=== PATIENT | female | born 1960 | race Caucasian/White ===

== ENCOUNTER 2016-10-02 01:38 | Emergency (ER) | payer BC ==
[2016-10-02] MEDS ORDERED: LORazepam INJ* 2 MG/ML 1 ML VIAL IM ONE (01:42)
[2016-10-02] MEDS ORDERED: Ketorolac INJ* 60 MG/2 ML VIAL IM ONE (01:42)
[2016-10-02] MEDS ORDERED: HYDROmorphone INJ* 1 MG/ML CARPUJECT SYRINGE IM ONE (02:22)
[2016-10-02] MEDS ORDERED: HYDROmorphone INJ* 1 MG/ML CARPUJECT SYRINGE IV SLOW PU ONE (03:53)
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
[2016-10-02 04:38] VITALS: BP 127/107
--- NOTE | 2016-10-02 08:10 | RAD ---
HISTORY: Fall, back pain COMPARISONS: September 20, 2007 VIEWS: 5 , Frontal, lateral, coned-down lateral sacral, and bilateral oblique views of the lumbar spine. FINDINGS: ALIGNMENT: There is straightening of the normal lumbar lordosis. There is mild levoscoliotic curvature of the spine VERTEBRAL BODIES: There is multilevel anterolateral marginal osteophyte formation. JOINTS: There is diffuse facet osteophytic change most mass at L3-L4, L4-L5, and L5-S1. INTERVERTEBRAL DISCS: There is diffuse loss of intervertebral disc height. SOFT TISSUE: Unremarkable. OTHER: There is mild osteoarthritis of the SI joints IMPRESSION: 1. STRAIGHTENING OF THE LUMBAR LORDOSIS. 2. MILD SCOLIOSIS. 3. DEGENERATIVE DISC DISEASE AND OSTEOARTHRITIS
== END 2016-10-02 04:37 | disposition home or self-care (01) ==
LOC: ED 01:38
DX: M51.37 Other intervertebral disc degeneration, lumbosacral region (principal); M40.56 Lordosis, unspecified, lumbar region; M54.5 Low back pain; M19.91 Primary osteoarthritis, unspecified site
CPT/HCPCS: 72110; 96374; 96375; 99283; J1170; J1885; J2060

== ENCOUNTER 2017-02-25 20:14 | Emergency (ER) | payer BC ==
[2017-02-25 20:29] VITALS: BP 142/86
[2017-02-25] MEDS ORDERED: Mupirocin 2% OINT* TUBE TOPICAL ONE (21:04)
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
== END 2017-02-25 21:15 | disposition home or self-care (01) ==
LOC: UCEAST 20:14
DX: L01.00 Impetigo, unspecified (principal); F17.210 Nicotine dependence, cigarettes, uncomplicated
CPT/HCPCS: 99212; G0463

== ENCOUNTER 2017-05-07 21:42 | Emergency (ER) | payer BC ==
[2017-05-07 21:50] VITALS: BP 161/69
== END 2017-05-07 22:45 | disposition left against medical advice (07) ==
LOC: ED 21:42
DX: R07.9 Chest pain, unspecified (principal); Z53.20 Procedure and treatment not carried out because of patient's decision for unspecified reasons
CPT/HCPCS: 99282

== ENCOUNTER 2017-06-02 19:14 | Emergency (ER) | payer BC ==
[2017-06-02 19:22] VITALS: BP 157/79
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
== END 2017-06-02 19:55 | disposition short-term general hospital (02) ==
LOC: UCEAST 19:14
DX: R10.31 Right lower quadrant pain (principal); F17.210 Nicotine dependence, cigarettes, uncomplicated; E11.9 Type 2 diabetes mellitus without complications; K21.9 Gastro-esophageal reflux disease without esophagitis
CPT/HCPCS: 99213; G0463

== ENCOUNTER 2017-06-02 20:13 | Observation (INO) | payer BC ==
[2017-06-02] MEDS ORDERED: NS 0.9% 1000 ML* 1,000 ML IV ONE (20:15)
[2017-06-02] MEDS ORDERED: Ondansetron INJ* 2 MG/ML VIAL IV ONE (20:15)
[2017-06-02] MEDS ORDERED: HYDROmorphone INJ* 1 MG/ML CARPUJECT SYRINGE IV SLOW PU ONE ×2 (20:21→23:41)
[2017-06-02 21:02] LABS: Hematocrit 41 % (35-47); Hemoglobin 14.5 g/dl (12.0-16.0); Mean Corpuscular HGB Conc 35 g/dl (31-36); Mean Corpuscular Hemoglobin 32 pg (27-31); Mean Corpuscular Volume 92 fL (80-97); Mean Platelet Volume 8 um3 (7.4-10.4); Red Blood Count 4.47 10^6/ul (4.0-5.4); Red Cell Distribution Width 13 % (10.5-15); White Blood Count 13.1 10^3/ul (3.5-10.8)
[2017-06-02 21:21] LABS: Albumin 4.6 g/dL (3.2-5.2); BUN/Creatinine Ratio 16.7 (8-20); C Reactive Protein 1.37 mg/L (< 5.00); Calcium 10.1 mg/dL (8.6-10.3); EGFR African American 107.8 (>60); EGFR Non-African American 83.8 (>60); Potassium 4.2 mmol/L (3.5-5.0); Total Bilirubin 0.4 mg/dL (0.2-1.0); Total Protein 7.6 g/dL (6.4-8.9)
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
[2017-06-02 22:24] LABS: Urine Bilirubin Negative (Negative); Urine Glucose Negative (Negative); Urine Nitrite Negative (Negative)
[2017-06-02] MEDS ORDERED: Iodixanol* (CONTRAST) 320 MG/ML 100 ML SDV IV ONE (22:43)
[2017-06-02] MEDS ORDERED: Ertapenem* 1 GM in NS 0.9% 50 ML* 50 ML IVPB ONE (23:42)
[2017-06-02] MEDS ORDERED: NS 0.9% 50 ML* 50 ML ONE (23:49)
[2017-06-03] MEDS ORDERED: HYDROmorphone INJ* 2 MG/ML CARPUJECT SYRINGE IV PRN
--- NOTE | 2017-06-03 05:47 | ED ---
Danis Sood Thomas, scribed for Oswald Alicia on 06/02/17 at 2355 . Progress - Progress Note Progress Note: The patient is a sign out from Dr. Paul at shift change pending CT Abd/Pel. CT Abd/Pel. Interpreted by radiologist. Impression. Operative for acute appendicitis. The appendix is dilated up to 1.1cm. There are appendicoliths and intraluminal fluid within the appendix. Mild periappendiceal inflammation. No abscess. No bowel obstruction. No free air or free fluid. No other acute intra- abdominal abnormalities. The liver may be fatty infiltrated. ED physician has reviewed this report and agrees. ED physician has reviewed this report and agrees. The patient is admitted by Dr. De León. Course/Dx - Diagnoses Provider Diagnoses: Acute appendicitis - Provider Notifications Discussed Care Of Patient With: French De León Time Discussed With Above Provider: 23:55 Instructed by Provider To: Other - I consulted with Dr. De León, surgery, who will admit the patient to his services. The documentation as recorded by the Danis feliciano Thomas accurately reflects the service I personally performed and the decisions made by Maral driscoll Emmanuel.
[2017-06-03] MEDS ORDERED: ceFOXitin 2 GM IVPREMIX* 2 GM/50 ML BAG IVPB ONE (07:37)
[2017-06-03] MEDS ORDERED: Acetaminophen IV 1GM/100ML * 1,000 MG/100 ML VIAL IVPB ONE ×2 (07:51→07:55)
--- NOTE | 2017-06-03 07:53 | RAD ---
INDICATION: Right lower quadrant abdominal pain. COMPARISON: Comparison is made with a prior CT of the abdomen and pelvis from November 16, 2013. TECHNIQUE: A CT scan of the abdomen and pelvis was performed with intravenous and oral contrast following intravenous injection of 101 ml of Visipaque 320 nonionic contrast. Contiguous axial sections were obtained from the lung bases through the symphysis pubis. Images were reconstructed in the coronal and sagittal planes. FINDINGS: There is mild dependent bilateral lower lobe subsegmental atelectasis. No pleural effusion is present. The liver and spleen are normal in size. The liver is decreased in attenuation consistent with fatty infiltration. No calcified gallstones are seen. The pancreas appears to be within normal limits. The kidneys and adrenal glands are normal in size. No hydronephrosis is seen. No significant focal renal abnormality is seen. The aorta is normal in caliber with mild calcific plaque present. No significant enlarged retroperitoneal lymph nodes are seen. The stomach, small and large bowel appear nondistended. There are appendicoliths present. The appendix is dilated and fluid-filled measuring up to 1 cm in diameter. There is interstitial stranding in the adjacent mesenteric fat. These findings are all consistent with acute appendicitis. No abscess is seen. There is mild descending and sigmoid diverticulosis without evidence for diverticulitis. There is a small periumbilical hernia containing fat The uterus is anteverted and normal in size. No free intraperitoneal air or fluid is seen. No significant focal osseous abnormality is seen. IMPRESSION: 1. FINDINGS CONSISTENT WITH ACUTE APPENDICITIS. 2. HEPATIC STEATOSIS.
[2017-06-03] MEDS ORDERED: Ketorolac INJ* 30 MG/ML 1 ML VIAL ONE (08:00)
--- NOTE | 2017-06-03 08:50 | HP ---
CC: Dr. Leobardo Bernardo* HISTORY AND PHYSICAL: DATE OF ADMISSION: 06/03/17 CHIEF COMPLAINT: Abdominal pain. HISTORY OF PRESENT ILLNESS: The patient started with abdominal pain yesterday, progressed to severe right lower quadrant pain last night and she came to the emergency room. She has not had an antecedent illness, does not usually have any bowel or digestive problems. She has not had nausea, vomiting, diarrhea, blood in the stool or urine. PAST SURGICAL HISTORY: section x2, diagnostic laparoscopy, tubal ligation, right shoulder surgery x2, left shoulder surgery x1. MEDICATIONS: Include: 1. Omeprazole 20 mg a day. 2. Meloxicam 15 mg a day. 3. Ropinirole 6 mg p.o. q. p.m. 4. Gabapentin 100 mg p.o. t.i.d. ALLERGIES: She quotes an allergy to CODEINE having had some hallucinations in the past. FAMILY HISTORY: Reveals no bleeding tendencies or anesthesia reactions. SOCIAL HISTORY: She is a smoker. She works 2 jobs. She has a significant other. REVIEW OF SYSTEMS: Negative for any cardiac disease, chest pain, angina pain, or heart pain. Pulmonary: There is no COPD but she has had recurrent bronchitis at times in the past, nothing now. She has no hepatobiliary history. She quotes prediabetes, but has not required any medication for it. There is no thyroid disease or other endocrine disease. She has not had any gastrointestinal disease, prior attack of diverticulitis. No colitis, irritable bowel, Crohn's, or anything of the sort. No disease. She has normal urination. No kidney stones. She is postmenopausal. She has had a previous tubal ligation. Neuromuscular, she has had restless leg syndrome and some neuropathic pain in her feet. She has had multiple orthopedic surgeries. PHYSICAL EXAMINATION GENERAL: She is a well-developed, well-nourished, overweight female, consistent with stated age. VITAL SIGNS: Temperature 98.1; pulse 81, regular; respirations 18, unlabored; blood pressure 114/62 with an O2 saturation of 95%. NECK: Supple without any adenopathy. LUNGS: Clear bilaterally with easy respirations. HEART: Regular without any abnormal sounds. BREAST: Deferred. She is up-to-date on mammograms and Pap smears. ABDOMEN: Obese and soft and exquisitely tender in the right lower quadrant with Rovsing's sign and guarding and rebound tenderness. There are no palpable masses or obvious hernias. EXTREMITIES: Well perfused and without edema. SKIN: Warm and well perfused. She is not diaphoretic. She is not jaundiced. LABORATORY DATA: Show white blood count elevated at 13,000, platelets normal, slight left shift. Electrolytes are normal and remainder of the chemistries are essentially normally. Urinalysis is unremarkable. CT scan which I personally reviewed is consistent with early acute appendicitis. IMPRESSION: A 56-year-old female with evidence of early acute appendicitis. I discussed this with her and I recommended laparoscopic appendectomy. She understands the procedure, the rationale, the risks, and the alternatives and agrees to proceed with that and we will do so as the operative schedule permits. [id number]/[facility]PS #: [id number] MTDD
--- NOTE | 2017-06-03 09:01 | PN ---
Progress Note - Progress Note Date of Service: 06/03/17 Note: Surgery Asked by Dr. De León to take over care of patient who has appendicitis. I have met with and examined Ms. Guerrero. I agree that she has appendicitis and should have laparoscopic appendectomy. I have explained to her the nature of surgery, its risks, benefits, and alternatives. She understands and agrees to proceed. Elvis
[2017-06-03] MEDS ORDERED: Famotidine IV* 10 MG/ML 2 ML (20 mg) IV ONE (09:56)
[2017-06-03] MEDS ORDERED: Dexamethasone IV* 4 MG/ML 1 ML (4 MG) IV SLOW PU ONE (09:56)
[2017-06-03] MEDS ORDERED: Buffered Lidocaine 0.9% SYRIN* 5 ML/SYR SYRINGE INTRADERM ONE (09:56)
[2017-06-03] MEDS ORDERED: Bupivacaine 0.25% SDV* 30 ML ONE (10:13)
[2017-06-03] MEDS ORDERED: Levalbuterol 1.25MG/0.5ML NEB ONE (10:25)
[2017-06-03] MEDS ORDERED: Ondansetron INJ* 2 MG/ML VIAL IV PRN ×2 (11:07)
[2017-06-03] MEDS ORDERED: HYDROcodone/ACETAMIN 5-325 MG* 1 TAB PO PRN (11:07)
[2017-06-03] MEDS ORDERED: Ketorolac INJ* 30 MG/ML 1 ML VIAL IV PRN (11:07)
[2017-06-03] MEDS ORDERED: Levalbuterol 1.25MG/0.5ML NEB INH PRN (11:07)
[2017-06-03] MEDS ORDERED: Acetaminophen TAB* 325 MG PO PRN (11:07)
--- NOTE | 2017-06-03 12:10 | PN ---
Progress Note - Progress Note Date of Service: 06/03/17 Note: Brief Operative Note: Pre-op: Acute appendicitis Post-op: Same Procedure: Laparoscopic appendectomy Surgeon: Dr. Aj Pastry Chef: QUE Ly Anaesthesia: Dr. Flash WHEAT Fluids: Crystalloid EBL; Minimal Catheter: None Drains: None Specimen: Vermiform appendix Findings: See dictated op note
[2017-06-03] MEDS: Gabapentin CAP(*) 100 MG PO SCH ×2 (14:48→20:27)
[2017-06-03] MEDS: NS 0.9% 1000 ML* 1,000 ML IV SCH (16:22)
[2017-06-03] MEDS ORDERED: rOPINIRole TAB* 4 MG PO SCH (18:00)
[2017-06-04] MEDS: Ketorolac INJ* 30 MG/ML 1 ML VIAL IV PUSH PRN ×2 (02:29→09:16)
--- NOTE | 2017-06-04 02:34 | OP ---
CC: [facility]; Dr. Leobardo Bernardo OPERATIVE REPORT: DATE OF OPERATION: 06/03/17 DATE OF : 60 SURGEON: Diane Aj MD BOILER HOUSE INSPECTOR: QUE Andres-Student PRE-OP DIAGNOSIS: Appendicitis. POST-OP DIAGNOSIS: Appendicitis. OPERATIVE PROCEDURE: Laparoscopic appendectomy. INDICATIONS: Ms. Guerrero presented to the emergency room with abdominal pain and CAT scan was fo und to have appendicitis prompting the plan for antibiotics and surgery, after overnight where she d id not improve. DESCRIPTION OF PROCEDURE: She was brought to the operating room, placed on the OR table in the supi ne position, and given general anesthesia. The abdomen was then prepped and draped in the usual viviana rile fashion. After infiltrating with local anesthetic, an infraumbilical incision was made. Subcu taneous tissue was divided bluntly. The fascia was grasped and incised and a 0 Biosyn stitch was pl aced on either side of the fascial incision. A trocar was inserted into the abdomen and attempt was made to insufflate the abdomen, but it appeared that we were caught in some omentum, so port was wi thdrawn. Digital manipulation cleared some of the omentum and then the port was reinserted and the abdomen was reinsufflated this time. There was enough clear space to get around the omentum and loo ked to the left flank. Here under direct visualization, another port was placed after infiltrating with local anesthetic. This allowed take down of adhesions that were of the omentum to the anterior abdominal wall in the region of the umbilicus which was the site of prior laparoscopic surgery. Th andres were taken down with a combination of blunt and sharp dissection. Then once it appeared cleared enough to allow port to be placed in the suprapubic area, this was done under direct visualization after infiltrating with local anesthetic. The cecum was then rotated medially and this exposed an a cutely inflamed appendix, that was adherent to the lateral sidewall of the cecum making it essential ly a retrocecal appendix. Attachments of the appendix to the cecum were taken down using a combinati on of sharp and electrocautery dissection. Once the appendix was more mobile, the base of the appen mayur was cleared and an EndoGIA stapler was used to fire across the base of the appendix. Manipulati ng the appendix further and elevating it in the abdominal wall, there appeared to be two halves of t he mesoappendix, no doubt created by the dissection. These were taken down using EndoGIA stapler fi rst across the more proximal and then across the more distal one. The appendix was then placed in a n EndoCatch bag and withdrawn from the abdomen through the infraumbilical port site. The right lowe r quadrant was irrigated with saline and the irrigation fluid was evacuated. The ports were then wi thdrawn under direct visualization and the previously placed 0 Vicryl which was the correct suture t hat was used Biosyn, used to close the fascia of the infraumbilical port site and then 4-0 Monocryl was used to close the skin of all incisions. Steri-Strips were applied. All sponge and instrument counts were correct. The patient tolerated the procedure well and was transferred to recovery in a stable condition. [id number]/[facility] #: [id number]
[2017-06-04] MEDS: NS 0.9% 1000 ML* 1,000 ML IV SCH (04:05)
--- NOTE | 2017-06-04 08:45 | PN ---
Progress Note - Progress Note Date of Service: 06/04/17 Note: Surgery Ms. Guerrero feels much better than before surgery. She tolerated ' 2cheeseburgers" last night. She has been to the bathroom ambulating without difficulty. Vital Signs 06/03/17 06/03/17 06/03/17 12:00 12:05 12:10 Temperature 97.9 F Pulse Rate 87 84 84 Respiratory 16 17 16 Rate Blood Pressure 151/63 135/63 129/58 (mmHg) O2 Sat by Pulse 95 95 94 Oximetry 06/03/17 06/03/17 06/03/17 12:15 12:30 12:45 Temperature Pulse Rate 78 69 69 Respiratory 17 17 16 Rate Blood Pressure 134/55 113/55 109/50 (mmHg) O2 Sat by Pulse 93 90 91 Oximetry 06/03/17 06/03/17 06/03/17 13:00 13:15 13:30 Temperature Pulse Rate 70 72 72 Respiratory 16 17 14 Rate Blood Pressure 103/55 114/57 112/58 (mmHg) O2 Sat by Pulse 90 90 90 Oximetry 06/03/17 06/03/17 06/03/17 13:45 14:16 14:39 Temperature 98.0 F 98 F Pulse Rate 72 45 65 Respiratory 16 16 16 Rate Blood Pressure 110/55 116/57 116/57 (mmHg) O2 Sat by Pulse 92 99 99 Oximetry 06/03/17 06/03/17 06/03/17 14:48 15:15 16:00 Temperature 99.0 F Pulse Rate 69 Respiratory 16 16 Rate Blood Pressure 100/52 (mmHg) O2 Sat by Pulse 99 98 Oximetry 06/03/17 06/03/17 06/03/17 16:16 16:48 18:20 Temperature 99.6 F 98.8 F Pulse Rate 78 82 Respiratory 16 16 16 Rate Blood Pressure 120/51 114/63 (mmHg) O2 Sat by Pulse 98 100 Oximetry 06/03/17 06/03/17 06/03/17 19:26 20:22 20:27 Temperature 100.7 F Pulse Rate 100 Respiratory 16 16 16 Rate Blood Pressure 120/53 (mmHg) O2 Sat by Pulse 92 Oximetry 06/03/17 06/03/17 06/04/17 22:27 23:19 01:09 Temperature 99.4 F Pulse Rate 99 Respiratory 16 16 Rate Blood Pressure 132/51 (mmHg) O2 Sat by Pulse 93 93 Oximetry 06/04/17 06/04/17 06/04/17 03:26 07:15 07:38 Temperature 99.7 F 98.8 F 98.2 F Pulse Rate 89 86 78 Respiratory 14 14 20 Rate Blood Pressure 113/51 106/55 126/41 (mmHg) O2 Sat by Pulse 94 91 91 Oximetry Abd: good BS, soft, very mildly tender near incisions. Incisions: clean and dry. Intake & Output 06/03/17 06/04/17 06/04/17 22:59 06:59 14:59 Intake Total 725 1974 Output Total 300 600 Balance 425 1374 Intake: IV Fluids 1374 ABX - ZOSYN 189 NS (0.9%) 1185 Oral 725 600 Output: Urine 300 600 Other: # Bowel Movements 0 POD#1 s/p lap appy doing well. Can go home and f/u as outpt. Will provide pain med and abx for a few days. CLFoster
[2017-06-04] MEDS ORDERED: Famotidine IV* 10 MG/ML 2 ML (20 mg) IV SCH (09:00)
[2017-06-04] MEDS: Gabapentin CAP(*) 100 MG PO SCH (09:11)
[2017-06-04 11:54] VITALS: BP 125/60
== END 2017-06-04 12:20 | disposition home or self-care (01) ==
LOC: ED 20:13 → INTOOBSV 06-03 00:15 → SSU 06-03 00:15
PROVIDERS: ADMIT Surgery; ATTEND Surgery
PROC: 0DTJ4ZZ Resection of Appendix, Percutaneous Endoscopic Approach (ICD-10-PCS; principal; 2017-06-03 10:15)
DX: K35.80 Unspecified acute appendicitis (principal); E78.00 Pure hypercholesterolemia, unspecified; F17.210 Nicotine dependence, cigarettes, uncomplicated; Z88.5 Allergy status to narcotic agent
CPT/HCPCS: 36415; 74177; 80053; 81003; 83605; 83690; 85025; 86140; 87040; 88304; 96374; 96375; 96376; 99213; 99284; A9270-GY; C1776; G0378; G0463; J0694; J1170; J1335; J1885; J2405; J2543; Q9967

== ENCOUNTER 2017-11-11 22:54 | Inpatient (IN) | payer MEDICAID, OTHER ==
[2017-11-11] MEDS ORDERED: Morphine INJ* 10 MG/ML 1 ML CARPUJECT IV ONE (23:09)
[2017-11-11] MEDS ORDERED: Ondansetron INJ* 2 MG/ML VIAL IV ONE (23:21)
[2017-11-11 23:28] LABS: ABS Basophils 0.1 10^3/ul (0-0.2); ABS Eosinophils 0.1 10^3/ul (0-0.6); ABS Lymphocytes 3.3 10^3/ul (1.0-4.8); ABS Monocytes 1.1 10^3/ul (0-0.8); ABS Neutrophils 5.9 10^3/ul (1.5-7.7); ABS Nucleated RBC 0 10^3/ul; Eosinophil % 0.8 % (0-6); Hematocrit 39 % (35-47); Hemoglobin 13.3 g/dl (12.0-16.0); Mean Corpuscular HGB Conc 34 g/dl (31-36); Mean Corpuscular Hemoglobin 31 pg (27-31); Mean Corpuscular Volume 90 fL (80-97); Mean Platelet Volume 7.8 um3 (7.4-10.4); Nucleated Red Blood Cells % 0; Platelet Count 247 10^3/ul (150-450); Red Blood Count 4.31 10^6/ul (4.0-5.4); Red Cell Distribution Width 15 % (10.5-15); White Blood Count 10.5 10^3/ul (3.5-10.8)
[2017-11-11] MEDS ORDERED: Al Hydrox/Mg Hydrox/Simet LIQ* 30 ML UDC PO ONE (23:43)
[2017-11-11] MEDS ORDERED: Pantoprazole IV* 40 MG IV ONE (23:43)
[2017-11-11] MEDS ORDERED: Lidocaine 2% VISCOUS* 15 ML UDC PO ONE (23:43)
--- OUTSIDE RECORDS SUMMARY | 2017-11-11 23:45 | XMS REPORT ---
:1960 External Reference #:[id number] Author Organization [facility] Address [address] [address] Phone [phone] Care Team Providers Name Role Phone Leobardo Bernardo MD Primary Care Physician Unavailable Payers Type Date Identification Numbers Payment Provider Subscriber Commercial PayID: [id number] Rafael Jamaal Guerrero [address] [place] [address] Problems Date Description Provider Status Onset: 07/20/2017 Restless legs Bigg Cherry M.D. 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 Active disc Onset: 12/02/2014 Meralgia paresthetica Chester Mcgarry M.D. Active Onset: 12/02/2014 Lumbar sprain Chester Mcgarry M.D. 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 Cigarette Use Former Cigarette Smoker 1 Pack Daily ETOH Use Denies alcohol use Recreational Drug Use Denies Drug Use Smoking Heavy tobacco smoker (more than 10 cigarettes/day) Exercise Type/Frequency Exercises sporadically Allergies, Adverse Reactions, Alerts Date Description Reaction Status Severity Comments 12/02/2014 Codeine other active hallucinations and sweating 09/07/2017 Blueberries active hives and swelling 09/07/2017 Winter Pears active hives and swelling 10/30/2017 Vicodin active Medications Medication Date Status Form Strength Qnty SIG Indications Ordering Provider Gabapentin 09/07/ Active Capsules 300mg 270ca 3 by [id number] Bigg 2017 ps carlos Cherry M.D. three times a day Omeprazole / Active Capsules DR 40mg 1 by Unknown 0000 mouth every day Ropinirole / Active Tablets 2mg 2-3 tabs Unknown HCL 0000 daily at night Meloxicam / Active Tablets 15mg take 1 Unknown 0000 tablet by mouth once daily Flovent HFA / Active Aerosol 220mcg/Ac as Unknown 0000 t directed Hydrocodone / Active Tablets 5-300mg 1 tab by Unknown Bitartrate/Ac 0000 mouth etaminophen every 4 hours as needed pain Gabapentin 07/20/ Hx Capsules 300mg 180ca 2 by G60.3 Bigg 2016 - ps carlos Cherry M.D. three 2018 times a day Ultracet 02/06/ Hx Tablets 37.5-325m 30tab 1 - 2 by 727.03 Christy Altamirano - g lamont Rice M.D. 02/28/ q4-6hr as 2014 needed pain Crestor / Hx Tablets 5mg 1 by Unknown 0000 - mouth 02/05/ every day 2014 Tramadol HCL 00/ Hx Tablets 50mg take 1-2 Unknown 0000 - tablets 02/05/ by mouth 2014 every 6 hours if needed Furosemide / Hx 20mg Unknown 0000 - 2014 Cephalexin / Hx 500mg Unknown 0000 - 2016 Tramadol HCL 00/ Hx Tablets 50mg Take 1 To Unknown 0000 - 2 Tablets 07/15/ By Mouth 2016 Every 6 Hours as Needed Oxycodone-Tre / Hx Tablets 5-325mg Take 2 Unknown taminophen 0000 Tablets Every 6 Hours as Needed For Pain, MDD Is 8 Ibuprofen / Hx Tablets 800mg take 1 Unknown 0000 - tablet by 07/19/ mouth 2016 three times a day if needed with food Gabapentin / Hx Capsules 300mg take 1 Unknown 0000 - capsule 07/15/ by mouth 2016 three times a day Chantix / Hx Tablets 1mg as Unknown Continuing 0000 - directed Month Ean 2017 Flonase / Hx Suspension 50mcg/Act spray 1 Unknown Allergy 0000 - spray in Relief 2016 nostril twice daily Prednisone / Hx Tablets 10mg 30tab 1 tabs by Unknown 0000 - s mouth every day 2018 Gabapentin / Hx Capsules 300mg 90cap 1 by G60.3 Unknown 0000 - s mouth three 2017 times a day Vital Signs Date Vital Result Comment 10/31/2017 Height 63 inches 5'3" Weight 207.12 lb Heart Rate 96 /min BP Systolic Sitting 128 mmHg BP Diastolic Sitting 68 mmHg Respiratory Rate 16 /min BMI (Body Mass Index) 36.7 kg/m2 09/07/2017 Height 63 inches 5'3" Weight 205.00 lb Heart Rate 87 /min BP Systolic 130 mmHg BP Diastolic 80 mmHg Respiratory Rate 20 /min Pain Level 1 O2 % BldC Oximetry 97 % BMI (Body Mass Index) 36.3 kg/m2 07/20/2017 Height 63 inches 5'3" Weight 193.00 lb Heart Rate 81 /min BP Systolic Sitting 130 mmHg BP Diastolic Sitting 74 mmHg Respiratory Rate 16 /min Pain Level 2 burning pain worse at night O2 % BldC Oximetry 97 % Ra BMI (Body Mass Index) 34.2 kg/m2 06/13/2017 Height 63 inches 5'3" Weight 192.00 lb Heart Rate 72 /min BP Systolic Sitting 138 mmHg BP Diastolic Sitting 80 mmHg Respiratory Rate 18 /min Body Temperature 99.1 F BMI (Body Mass Index) 34.0 kg/m2 11/12/2016 Height 63 inches 5'3" Weight 193.00 lb Heart Rate 76 /min BP Systolic Sitting 130 mmHg BP Diastolic Sitting 84 mmHg Pain Level 0 BMI (Body Mass Index) 34.2 kg/m2 04/14/2015 Height 63 inches 5'3" Weight 200.00 lb Pain Level 2 up to 9 at times BMI (Body Mass Index) 35.4 kg/m2 03/31/2015 Height 63 inches 5'3" Weight 200.00 lb Pain Level 5 BMI (Body Mass Index) 35.4 kg/m2 03/17/2015 Height 63 inches 5'3" Weight 200.00 lb Pain Level 4 BMI (Body Mass Index) 35.4 kg/m2 02/17/2015 Height 63 inches 5'3" Weight 200.00 lb Pain Level 4 BMI (Body Mass Index) 35.4 kg/m2 02/06/2015 Height 63 inches 5'3" Weight 200.00 lb Heart Rate 100 /min BP Systolic 142 mmHg BP Diastolic 71 mmHg Pain Level 8 BMI (Body Mass Index) 35.4 kg/m2 12/02/2014 Height 63 inches 5'3" Weight 206.00 lb Heart Rate 84 /min BP Systolic Sitting 138 mmHg BP Diastolic Sitting 80 mmHg Pain Level 3 back/R hip BMI (Body Mass Index) 36.5 kg/m2 Results Test Date Test Result H/L Range Note Laboratory test finding 10/10/2017 Vitamin B12 341 pg/mL 180-914 1 Erythrocyte Sed Rate 29 mm/Hr 0-30 C Reactive Protein 2.27 mg/L < 5.00 2 Protein Electrophoresis 10/10/2017 Total Protein(Pep) 7.6 g/dL 6.3 - 7.9 Albumin 3.8 g/dL 3.4-4.7 Alpha-1 Globulin 0.3 g/dL 0.1-0.3 Alpha-2 Globulin 1.1 g/dL 0.6-1.0 Beta Globulin 1.2 g/dL 0.7-1.2 Gamma Globulin 1.1 g/dL 0.6-1.6 Albumin/Globulin Ratio 1.02 Impression See Comment 3 Anca Panel For Vasculitis 10/10/2017 Myeloperoxidase AB < 0.2 U 4 Proteinase 3 AB < 0.2 U 5 Heavy Metal Blool 10/10/2017 Arsenic <1 ng/mL 0-12 6 Lead <1.0 g/dL 0.0-4.9 7 Mercury <1 ng/mL 0-9 8 Cadmium 3.6 ng/mL 0.0-4.[address] Guardian First Name JAMAAL [facility] Ven[facility]/Capillary Heavy Metals Venous Patient Race WHITE Submitting Laboratory 11 Laboratory test finding 02/07/2015 Point of Care Glucose 97 mg/dL 74-106 12 1 Normal Range 180 to 914 Indeterminate Range 145 to 180 Deficient Range <145 2 Acute inflammation: >10.00 3 RESULT: No apparent monoclonal protein on serum electrophoresis. Test Performed by: [facility] - [address] [address] 4 REFERENCE VALUE <0.4 (Negative) 5 REFERENCE VALUE <0.4 (Negative) Test Performed by: [facility] - [address] [address] 6 ADDITIONAL INFORMATION This test was developed and its performance characteristics determined by [facility] in a manner consistent with CLIA requirements. This test has not been cleared or approved by the U.S. Food and Drug Administration. 7 ADDITIONAL INFORMATION Testing performed by Inductively Coupled Plasma-Mass Spectrometry (ICP-MS). This test was developed and its performance characteristics determined by [facility] in a manner consistent with CLIA requirements. This test has not been cleared or approved by the U.S. Food and Drug Administration. 8 ADDITIONAL INFORMATION This test was developed and its performance characteristics determined by [facility] in a manner consistent with CLIA requirements. This test has not been cleared or approved by the U.S. Food and Drug Administration. 9 ADDITIONAL INFORMATION This test was developed and its performance characteristics determined by [facility] in a manner consistent with CLIA requirements. This test has not been cleared or approved by the U.S. Food and Drug Administration. 10 251 [facility] 11 Test Performed by: [facility] - [facility] [address] [place] [address] 12 Video Recorder Mechanic: [id number] WILLIAM FLORIAN Procedures Date CPT Code Description Status 06/03/2017 45542 Laparoscopy, Surgical, Appendectomy Completed 02/07/2015 60266 Trigger Finger Release Incision / Tendon Sheath Completed Incision Encounters Type Date Location Provider CPT E/M Dx Office Visit 10/31/2017 [facility] Bigg Cherry M.D. 95498 G60.3 10:15a [facility] G57.10 G25.81 Office Visit 09/07/2017 4:00p [place] Bigg Cherry 40141 G60.3 [facility] [place] G57.10 Office Visit 07/20/2017 1:00p [place] Bigg Cherry, 73405 G60.3 [facility] [place] G57.10 G25.81 Office Visit 06/03/2017 7:00a [facility] [place], 60911 K35.80 [place] Office Visit 11/12/2016 9:30a [facility] Kaylee Stevens PA-C 59746 M51.36 [facility] Office Visit 02/06/2015 8:30a [facility] [place] Rice, 18931 727.03 [place] Office Visit 12/02/2014 2:20p [facility] Chester Mcgarry, 40855 847.2 Of [place] 355.1 Office Visit 01/06/2010 9:00a [facility] Chester Mcgarry, 32701 721.1 [facility] [place] Office Visit 02/26/2008 10:30a [facility] Chester Mcgarry, 68720 721.1 Of [place] Plan of Care Future Appointment(s):01/02/2018 11:00 am - Bigg Cherry M.D. at [place] [facility]10/31/2017 - Bigg Cherry M.D.G60.3 Idiopathic progressive neuropathyFollow up:Follow up in 2 ppyttbV43.10 Meralgia paresthetica, unspecified lower limbG25.81 Restless legs syndrome
[2017-11-11 23:48] LABS: EGFR Non-African American 77.3 (>60)
[2017-11-11] MEDS ORDERED: nitroGLYCERIN DRIP* 25,000 MCG/250 ML BTL IV ONE (23:52)
[2017-11-12] MEDS ORDERED: fentaNYL* 50 MCG/ML 2 ML VIAL (100 MCG VIAL) IV SLOW PU ONE (00:19)
[2017-11-12] MEDS ORDERED: Iodixanol* (CONTRAST) 320 MG/ML 100 ML SDV IV ONE (00:34)
[2017-11-12] MEDS ORDERED: Heparin DRIP 25,000 UNITS(*) 25,000 UNITS/500 ML BAG IV SCH (00:45)
[2017-11-12] MEDS ORDERED: Heparin VIAL(*) 5000 UNITS/ML VIAL (FIVE THOUSAND) IV PRN ×2 (00:53→03:09)
[2017-11-12 02:27] LABS: INR 0.97 (0.77-1.02)
--- NOTE | 2017-11-12 02:39 | HP ---
H&P (Free Text) History and Physical: PCP: Billy Bernardo MD Date/Time: 11/12/2017 0230 CC: chest pain HPI: Mrs Guerrero is a 57YO female HX SHERRON on CPAP/oxygen, restless leg syndrome, GERD reports onset of non-exertional burning chest pain radiating down B arms evening ~2000. She took some hydrocodone and was able to sleep, but awoke Tuesday AM still having pain continuously throughout the day. It acutely worsened around 1800 prompting presentation for evaluation. At worst , it was 20/10 and significantly alleviated with nitro. Currently it is 2-3/10 on a nitro GTT. It has been associated with SOB, nausea without emesis, sweats, and fatigue, but no palpitations or light-headedness. She denies exacerbating or alleviating factors as well as a history of similar. Troponin is 4.9. ECG is non-diagnostic. CTA is negative for PE/dissection. ED has consulted Lora Lucero MD cardiology who agrees the ECG is not diagnostic of STEMI & will arrange evaluation in AM. PMedHx SHERRON on CPAP/2L oxygen restless leg syndrome GERD OA Ambulatory Orders Nursing to reconcile. Omeprazole CAP* [Prilosec CAP* 20 MG] 20 mg PO QPM 07/26/12 Meloxicam(NF) [Mobic(NF)] 15 mg PO QPM 09/04/15 Ropinirole Hydrochloride [Ropinirole HCl] 6 mg PO QPM 09/04/15 Gabapentin CAP(*) [Neurontin 100 mg CAP(*)] 300 mg PO TID 06/02/17 Allergies acetaminophen [From Vicodin] Allergy (Verified 11/11/17 23:01) Hallucinations codeine Allergy (Verified 11/11/17 23:01) Hallucinations hydrocodone [From Vicodin] Allergy (Verified 11/11/17 23:01) Hallucinations BLUEBERRIES Allergy (Uncoded 06/02/17 20:16) RASH, EDEMA WINTER PEARS Allergy (Uncoded 06/02/17 20:16) RASH, EDEMA PSurgHx diagnostic laparotomy R shoulder surgery x2 B tubal ligation section x2 SocHx: 1+ PPD cigarettes with >30PYHX, no alcohol or recreational drugs; lives with her ; full code status FamHx: Mother: alive in her 70s, "doing pretty well"; Father: passed in his 50s 2nd CAD/[place]; Brother: CAD/[place] ROS: as above, otherwise reviewed and all were negative vitals: Vital Signs Temp 37.5 C 11/11/17 22:59 Pulse 74 11/12/17 03:15 Resp 17 11/12/17 03:15 BP 107/64 11/12/17 03:15 Pulse Ox 94 11/12/17 03:15 Intake & Output 11/11/17 11/11/17 11/12/17 11:59 23:59 11:59 Weight 86.183 kg 86.183 kg Constitutional: NAD, normally developed, obese white female HEENM: atraumatic; sclera/conjunctiva: anicteric/clear; hearing: clinically intact; oropharynx: clear, mucosa moist Neck: soft tissue: non-tender; thyroid: normal Pulmonary: clear to auscultation bilaterally, good aeration, no accessory muscle use CV: RR/RR, normal S1S2, no carotid bruit, no jugular venous distention, 2+ B DP/ PT, trace BLE edema Abdominal: soft, non-distended, non-tender, no rebound/guarding/rigidity, normoactive bowel sounds, no hepatosplenomegaly or masses, no costovertebral angle tenderness Musculoskeletal: general: grossly intact, no tenderness w/ palpation Integumental: normal appearance and texture of exposed skin Psychiatric orientation: AA&O to PPS affect: calm mood: cooperative eye contact: fair content: reliable responses: timely insight: fair Testing: Lab Results 11/11/17 11/11/17 11/11/17 Range/Units 23:18 23:18 23:18 WBC 10.5 (3.5-10.8) 10^3/ul RBC 4.31 (4.0-5.4) 10^6/ul Hgb 13.3 (12.0-16.0) g/dl Hct 39 (35-47) % MCV 90 (80-97) fL MCH 31 (27-31) pg MCHC 34 (31-36) g/dl RDW 15 (10.5-15) % Plt Count 247 (150-450) 10^3/ul MPV 7.8 (7.4-10.4) um3 Neut % (Auto) 56.3 (38-83) % Lymph % (Auto) 31.0 (25-47) % [place] % (Auto) 10.9 H (0-7) % Eos % (Auto) 0.8 (0-6) % Baso % (Auto) 1.0 (0-2) % Absolute Neuts (auto) 5.9 (1.5-7.7) 10^3/ul Absolute Lymphs (auto) 3.3 (1.0-4.8) 10^3/ul Absolute Monos (auto) 1.1 H (0-0.8) 10^3/ul Absolute Eos (auto) 0.1 (0-0.6) 10^3/ul Absolute Basos (auto) 0.1 (0-0.2) 10^3/ul Absolute Nucleated RBC 0 10^3/ul Nucleated RBC % 0 INR (Anticoag Therapy) (0.77-1.02) APTT (26.0-36.3) seconds D-Dimer, Quantitative (Less Than 230) ng/mL Sodium 135 L (139-145) mmol/L Potassium 4.2 (3.5-5.0) mmol/L Chloride 105 (101-111) mmol/L Carbon Dioxide 17 L (22-32) mmol/L Anion Gap 13 H (2-11) mmol/L BUN 21 (6-24) mg/dL Creatinine 0.77 (0.51-0.95) mg/dL Est GFR ( Amer) 99.4 (>60) Est GFR (Non-Af Amer) 77.3 (>60) BUN/Creatinine Ratio 27.3 H (8-20) Glucose 206 H (70-100) mg/dL Lactic Acid (0.5-2.0) mmol/L Calcium 8.7 (8.6-10.3) mg/dL Total Bilirubin 0.40 (0.2-1.0) mg/dL AST 82 H (13-39) U/L ALT 105 H (7-52) U/L Alkaline Phosphatase 102 (34-104) U/L Troponin I 4.91 H* (<0.04) ng/mL B-Natriuretic Peptide 170 H ( - 100) pg/mL Total Protein 6.6 (6.4-8.9) g/dL Albumin 3.8 (3.2-5.2) g/dL Globulin 2.8 (2-4) g/dL Albumin/Globulin Ratio 1.4 (1-3) 11/11/17 11/11/17 11/12/17 Range/Units 23:18 23:18 02:25 WBC (3.5-10.8) 10^3/ul RBC (4.0-5.4) 10^6/ul Hgb (12.0-16.0) g/dl Hct (35-47) % MCV (80-97) fL MCH (27-31) pg MCHC (31-36) g/dl RDW (10.5-15) % Plt Count (150-450) 10^3/ul MPV (7.4-10.4) um3 Neut % (Auto) (38-83) % Lymph % (Auto) (25-47) % [place] % (Auto) (0-7) % Eos % (Auto) (0-6) % Baso % (Auto) (0-2) % Absolute Neuts (auto) (1.5-7.7) 10^3/ul Absolute Lymphs (auto) (1.0-4.8) 10^3/ul Absolute Monos (auto) (0-0.8) 10^3/ul Absolute Eos (auto) (0-0.6) 10^3/ul Absolute Basos (auto) (0-0.2) 10^3/ul Absolute Nucleated RBC 10^3/ul Nucleated RBC % INR (Anticoag Therapy) 0.97 (0.77-1.02) APTT 29.2 (26.0-36.3) seconds D-Dimer, Quantitative 433 H (Less Than 230) ng/mL Sodium (139-145) mmol/L Potassium (3.5-5.0) mmol/L Chloride (101-111) mmol/L Carbon Dioxide (22-32) mmol/L Anion Gap (2-11) mmol/L BUN (6-24) mg/dL Creatinine (0.51-0.95) mg/dL Est GFR ( Amer) (>60) Est GFR (Non-Af Amer) (>60) BUN/Creatinine Ratio (8-20) Glucose (70-100) mg/dL Lactic Acid 4.2 H* (0.5-2.0) mmol/L Calcium (8.6-10.3) mg/dL Total Bilirubin (0.2-1.0) mg/dL AST (13-39) U/L ALT (7-52) U/L Alkaline Phosphatase (34-104) U/L Troponin I 4.28 H* (<0.04) ng/mL B-Natriuretic Peptide ( - 100) pg/mL Total Protein (6.4-8.9) g/dL Albumin (3.2-5.2) g/dL Globulin (2-4) g/dL Albumin/Globulin Ratio (1-3) 11/12/17 Range/Units 02:25 WBC (3.5-10.8) 10^3/ul RBC (4.0-5.4) 10^6/ul Hgb (12.0-16.0) g/dl Hct (35-47) % MCV (80-97) fL MCH (27-31) pg MCHC (31-36) g/dl RDW (10.5-15) % Plt Count (150-450) 10^3/ul MPV (7.4-10.4) um3 Neut % (Auto) (38-83) % Lymph % (Auto) (25-47) % [place] % (Auto) (0-7) % Eos % (Auto) (0-6) % Baso % (Auto) (0-2) % Absolute Neuts (auto) (1.5-7.7) 10^3/ul Absolute Lymphs (auto) (1.0-4.8) 10^3/ul Absolute Monos (auto) (0-0.8) 10^3/ul Absolute Eos (auto) (0-0.6) 10^3/ul Absolute Basos (auto) (0-0.2) 10^3/ul Absolute Nucleated RBC 10^3/ul Nucleated RBC % INR (Anticoag Therapy) (0.77-1.02) APTT 28.3 (26.0-36.3) seconds D-Dimer, Quantitative (Less Than 230) ng/mL Sodium (139-145) mmol/L Potassium (3.5-5.0) mmol/L Chloride (101-111) mmol/L Carbon Dioxide (22-32) mmol/L Anion Gap (2-11) mmol/L BUN (6-24) mg/dL Creatinine (0.51-0.95) mg/dL Est GFR ( Amer) (>60) Est GFR (Non-Af Amer) (>60) BUN/Creatinine Ratio (8-20) Glucose (70-100) mg/dL Lactic Acid (0.5-2.0) mmol/L Calcium (8.6-10.3) mg/dL Total Bilirubin (0.2-1.0) mg/dL AST (13-39) U/L ALT (7-52) U/L Alkaline Phosphatase (34-104) U/L Troponin I (<0.04) ng/mL B-Natriuretic Peptide ( - 100) pg/mL Total Protein (6.4-8.9) g/dL Albumin (3.2-5.2) g/dL Globulin (2-4) g/dL Albumin/Globulin Ratio (1-3) ECG, personally reviewed: junctional rhythm rate 94, diffuse non-diagnostic ST- T flattening/abnormalities CXR, personally reviewed: no acute process CTA chest, personally reviewed: IMPRESSION: No definite acute pathology. Early left apical emphysema. Impression: 57F HX obesity, tobacco use presents with NSTEMI DIAGNOSIS & PLAN Primary NSTEMI : ICU monitoring : aspirin : metoprolol 12.5mg PO x1 in ED : heparin GTT : nitro GTT : trend troponin : ECHO Tuesday : Lora Lucero MD cardiology consulted by ED, will arrange follow up : supplemental oxygen : supportive care Secondary HLD : check fasting lipids in AM : add atorvastatin tobacco use disorder : cessation recommended, moderate motivation : nicotine inhaler SHERRON : continue CPAP/2L oxygen restless leg syndrome : continue ropinirole GERD : continue omeprazole OA : hold meloxicam Admission Rational: inpatient for NSTEMI requiring ICU monitoring; inappropriate for outpatient setting DVTp: heparin GTT Code Status: full HCP:
[2017-11-12] MEDS ORDERED: Albuterol 2.5 MG/3 ML NEB.SOL* (0.083%) INH PRN (02:45)
[2017-11-12] MEDS ORDERED: CMCS: Melatonin (NF) 3 MG TAB PO PRN (02:45)
[2017-11-12] MEDS ORDERED: Mouth Piece, Nicotine* 1 EACH CARTRIDGE INH ONE (02:46)
[2017-11-12] MEDS ORDERED: Nicotine Inhaler* 10 MG AMP INH PRN (02:46)
[2017-11-12] MEDS ORDERED: Metoprolol Tartrate TAB* 25 MG PO ONE (02:46)
[2017-11-12] MEDS ORDERED: nitroGLYCERIN DRIP* 25,000 MCG/250 ML BTL IV SCH (03:00)
[2017-11-12] MEDS ORDERED: NS 0.9% 1000 ML* 1,000 ML IV SCH (03:00)
[2017-11-12] MEDS ORDERED: Ondansetron INJ* 2 MG/ML VIAL ONE (03:13)
[2017-11-12] MEDS: Heparin DRIP 25,000 UNITS(*) 25,000 UNITS/500 ML BAG IVPB SCH ×2 (03:15→04:41)
[2017-11-12] MEDS: Ondansetron INJ* 2 MG/ML VIAL IV PRN ×2 (03:15→08:21)
[2017-11-12] MEDS ORDERED: Morphine INJ* 2 MG/ML 1 ML CARPUJECT IV ONE (04:35)
[2017-11-12] MEDS ORDERED: Morphine INJ* 2 MG/ML 1 ML CARPUJECT ONE (04:38)
[2017-11-12] MEDS ORDERED: Furosemide IV* 10 MG/ML 2 ML VIAL (20 MG) IV ONE (04:44)
[2017-11-12] MEDS ORDERED: Morphine INJ* 2 MG/ML 1 ML CARPUJECT IV PRN (04:44)
[2017-11-12] MEDS ORDERED: Furosemide IV* 10 MG/ML 2 ML VIAL (20 MG) ONE (04:44)
[2017-11-12] MEDS ORDERED: Furosemide IV* 10 MG/ML 10 ML VIAL (100 MG) IV ONE (04:44)
--- NOTE | 2017-11-12 04:50 | PN ---
Progress Note - Progress Note Date of Service: 11/12/17 Note: Nursing reported saO2 in the mid-80s. RT setting up Vapotherm. Upon arrival, she is mainly complaining of R nare pain/discomfort 2nd Vapotherm, is able to maintain saO2 88% on RA, 90s on 8L [place]. Reports CP at 4/10. On exam, no accessory muscle use, bibasilar cellophane crackles. CV RRR. Repeat ECG shows overall improvement in non-specific ST-T changes previously noted, negative for STEMI. Assessment: plan volume overload in setting of NSTEMI : D/C IVFs : furosemide 20mg IV X1 : continue nitro GTT titration : morphine PRN pain : attempt to maintain saO2 mid-90s w/o Vapotherm, if possible
[2017-11-12 05:13] LABS: ABS Basophils 0 10^3/ul (0-0.2); ABS Eosinophils 0 10^3/ul (0-0.6); ABS Lymphocytes 1.4 10^3/ul (1.0-4.8); ABS Monocytes 0.6 10^3/ul (0-0.8); ABS Neutrophils 8.3 10^3/ul (1.5-7.7); ABS Nucleated RBC 0 10^3/ul; Eosinophil % 0.1 % (0-6); Hematocrit 37 % (35-47); Hemoglobin 12.5 g/dl (12.0-16.0); Mean Corpuscular HGB Conc 34 g/dl (31-36); Mean Corpuscular Hemoglobin 31 pg (27-31); Mean Corpuscular Volume 91 fL (80-97); Mean Platelet Volume 8.2 um3 (7.4-10.4); Nucleated Red Blood Cells % 0; Platelet Count 242 10^3/ul (150-450); Red Blood Count 4.06 10^6/ul (4.0-5.4); Red Cell Distribution Width 15 % (10.5-15); White Blood Count 10.3 10^3/ul (3.5-10.8)
[2017-11-12 05:21] LABS: EGFR Non-African American 63.7 (>60)
[2017-11-12] MEDS ORDERED: Omeprazole CAP* 20 MG PO SCH (06:00)
--- NOTE | 2017-11-12 07:59 | RAD ---
Indication: Chest pain and shortness of breath. Tobacco use. Comparison: November 12, 2017 CT. Technique: Upright AP 2320 hours Report: Accounting for superimposed soft tissues the lungs and pleural spaces are clear. Negative for pneumothorax. The heart, pulmonary vasculature, and mediastinal contours are unremarkable. Anterior cervical fusion hardware. IMPRESSION: No evidence for acute intrathoracic disease.
[2017-11-12] MEDS ORDERED: HYDROmorphone INJ* 2 MG/ML CARPUJECT SYRINGE IV SLOW PU PRN (08:07)
--- NOTE | 2017-11-12 08:07 | PN ---
Hospitalist Progress Note Date of Service: 11/12/17 I have seen and examined Ms. Guerrero with her son at the bedside this morning. She is having left-sided chest pain at the mid-axillary line that is constant, 4/10, associated with some nausea. On exam, bp is 130s/80s, hr is in the 60s, and pulse ox is 92% on 2L while I'm examining her she is uncomfortable but not in distress, appears older than stated age no pharyngeal exudates, no JVP RRR, no rub, chest is tender to palpation worst in the left MAL lungs clear anteriorly, she feels too nauseous to sit up abd soft, nontender, obese extremities without swelling or rashes, strength 5/5 throughout. A/P: 1. ACS/NSTEMI. Get chest pain free --> increase nitro drip now, she says morphine made her nauseous, will try dilaudid Continue heparin drip, statin, ASA, got metoprolol in ED, will add standing dose Cardiology consulted overnight 2. Acute on chronic hypoxic respiratory failure S/p lasix overnight with no UOP Check bladder scan
--- NOTE | 2017-11-12 08:58 | RAD ---
INDICATION: Chest pain, shortness of breath. COMPARISON: Chest radiograph of the same date and October 06, 2012 PET/CT. TECHNIQUE: Multidetector CT images were obtained from the lung apices to the upper abdomen with 81 mL Visipaque 320 IV contrast. Pulmonary angiogram protocol. Multiplanar reformation including with maximum intensity projection. REPORT: Aside from mild dependent atelectasis the lungs are clear. Few LEFT apical subpleural blebs noted. Negative for pleural effusion or pneumothorax. Negative for thoracic lymphadenopathy. Mild cardiomegaly. Physiologic trace volume of fluid at the pericardium. Normal diameter thoracic aorta. No filling defects are identified from the main to the subsegmental pulmonary arteries to indicate presence of a pulmonary embolism. Images through the upper abdomen are remarkable for fatty infiltration of the liver. Negative for suspicious thoracic osseous lesions. Anterior cervical fusion hardware noted. IMPRESSION: 1. Negative for pulmonary embolism. 2. Mild cardiomegaly. 3. Mild dependent atelectasis.
[2017-11-12] MEDS: Docusate CAP* 100 MG PO SCH ×2 (09:00→21:13)
[2017-11-12] MEDS: Gabapentin CAP(*) 300 MG PO SCH ×3 (09:00→21:14)
[2017-11-12] MEDS ORDERED: Metoprolol Tartrate IV* 1 MG/ML 5 ML VIAL IV ONE (10:13)
[2017-11-12] MEDS ORDERED: Metoprolol Tartrate IV* 1 MG/ML 5 ML VIAL ONE (10:18)
--- NOTE | 2017-11-12 10:29 | PN ---
Cardiology Progress Note Date of Service: 11/12/17 - CC: CP 57 yo smoker, FHx early CAD, Type 2 DM, dyslipidemia developed CP seated eating cheese and pepperoni Wed night (3 days ago). Persisted and presented to ED yesterday. Persistent pain overnight. Trops 4-5 since admission ECG: Anterior Q's and ST changes diffusely on arrival, ST flattening and biphasic changes in lateral resolved currently, mild STelevation precordial leads throughout, coving does not look like MO. 106/70, SR 70's smells of smoke lungs distant, clear S1S2 reg, no murmurs Good radial and DPP ECHO at bedside: LV: base of septum dyskinetic, base of lateral wall severely hypo, apex moves, EF approx 50%, AI, MR, (fair quality at best due to equipment , and body habitus with smoking and obesity). labs reviewed, renal function good, no anemia. A/P MO since Tue anton. with echo evidence of salvagable myocadium. Ongoing angina. Agree with statins and nitrates, ASA and heparin gtt. Start BB, cath now. Discussed with Dr Matson Full consult note to be dictated.
[2017-11-12] MEDS ORDERED: NS 0.9% 1000 ML* 1,000 ML IV ONE (11:03)
[2017-11-12] MEDS ORDERED: VERAPAMIL 2.5 MG/ML 2 ML VIAL ** 5 mg/2 ml ONE (11:04)
[2017-11-12] MEDS ORDERED: nitroGLYCERIN DRIP* 25,000 MCG/250 ML BTL ONE (11:04)
[2017-11-12] MEDS ORDERED: fentaNYL* 50 MCG/ML 2 ML VIAL (100 MCG VIAL) ONE (11:04)
[2017-11-12] MEDS ORDERED: Heparin 2 UNITS/ML IVPREMIX* 3,000 ML IV ONE (11:04)
[2017-11-12] MEDS ORDERED: Midazolam* 1 MG/ML 10 ML VIAL (10 MG) ONE (11:04)
[2017-11-12] MEDS ORDERED: Heparin(*) 1000 UNIT/ML 10 ML VIAL CATH LAB IV ONE ×2 (11:04→12:17)
[2017-11-12] MEDS ORDERED: Iohexol 350 (CONTRAST) 200 ML MDV IV ONE (11:05)
[2017-11-12] MEDS ORDERED: Lidocaine 1% INJ* 10 MG/ML 30 ML SDV ONE (11:05)
[2017-11-12] MEDS ORDERED: PROCHLORPERAZINE INJ 5 MG/ML 2 ML VIAL ONE (11:10)
[2017-11-12] MEDS ORDERED: Norepinephrine VIAL* 1 MG/ML 4 ML VIAL ONE (11:17)
[2017-11-12] MEDS ORDERED: PROCHLORPERAZINE INJ 5 MG/ML 2 ML VIAL IV ONE (11:20)
[2017-11-12] MEDS ORDERED: Ticagrelor* 90 MG TAB PO ONE (11:44)
[2017-11-12] MEDS ORDERED: Aspirin 81 mg CHEW TAB* 81 MG TAB.CHEW ONE (11:45)
[2017-11-12] MEDS ORDERED: Eptifibatide IV (Load dose)(*) 2 MG/ML 10 ml VIAL ONE (12:00)
[2017-11-12] MEDS ORDERED: Nitroglycerin TAB 0.4 MG* 0.4 MG TAB SL PRN (13:29)
[2017-11-12] MEDS: NS 0.9% 1000 ML* 1,000 ML IV SCH ×2 (14:01→15:40)
[2017-11-12] MEDS: Metoprolol Tartrate TAB* 25 MG PO SCH ×3 (14:34→21:14)
[2017-11-12] MEDS: Atorvastatin* 80 MG TAB PO SCH (16:16)
[2017-11-12] MEDS: Omeprazole CAP* 20 MG PO SCH (19:43)
[2017-11-12] MEDS: rOPINIRole TAB* 4 MG PO SCH (19:44)
[2017-11-12] MEDS: Ticagrelor* 90 MG TAB PO SCH (21:14)
--- NOTE | 2017-11-12 21:23 | CONS ---
CC: Hospitalist Service; Dr. Leobardo Bernardo CONSULTATION REPORT: DATE OF CONSULT: 11/12/17. PRIMARY CARE PHYSICIAN: Dr. Leobardo Bernardo. REASON FOR CONSULT: Chest pain, elevated troponins and abnormal ECG. HISTORY OF PRESENT ILLNESS: Mrs. Guerrero is a 57-year-old woman with no prior cardiac history but atherosclerotic risk factors, active smoking, diabetes, dyslipidemia. The patient states that 3 days ago Tuesday evening, she was eating cheese and pepperoni and just si tting when she developed substernal chest discomfort. No one was home with her, so she decided not t o seek medical care. The patient had persisted since that time. It was associated with some nausea and last night, she presented to the emergency room with her family. I was contacted on arrival to determine if her ECG was consistent with a STEMI, which I did not feel it was and was not contacted again until 10 o'clock this morning. The patient had ongoing chest discomfort and nausea and some shortness of breath. The patient states a statin was stopped a couple of years ago, by Dr. Mata because of diarrhea. She is an active smoker , although she states just as of yesterday, she could not smoke, she felt so badly. She denies any o ther recent changes in medications. She has been taking narcotics for the pain because she had these available for back pain. PAST MEDICAL HISTORY: The patient has a past medical history of: 1. Type 2 diabetes. 2. Obstructive sleep apnea, on CPAP. 3. Presumed COPD. 4. Active smoker. 5. Restless leg syndrome. 6. Degenerative arthritis with chronic back pain. 7. Reflux. PAST SURGICAL HISTORY: Includes: 1. Right shoulder surgery. 2. Diagnostic laparotomy. 3. Tubal ligation. 4. section. OUTPATIENT MEDICATIONS: Included: 1. Omeprazole 20 mg a day. 2. Neurontin 100 mg a day. 3. Mobic 15 mg q.h.s. 4. Ropinirole. INPATIENT MEDICATIONS: At the time of my arrival included: 1. Aspirin 81 mg a day. 2. Heparin drip. 3. Nitroglycerin drip. 4. Albuterol inhaler. 5. Lipitor 80 mg a day. 6. Colace. 7. Neurontin 300 mg t.i.d. 8. Dilaudid 1 mg IV p.r.n. pain. 9. Melatonin 3 mg q.h.s. p.r.n. 10. Nicotine inhaler 10 mg q. 2 hours p.r.n. 11. Prilosec. 12. Zofran, which she obtained. ALLERGIES: Include TYLENOL ( within VICODIN with hallucinations), CODEINE allergy, HYDROCODONE, BLUE BERRIES, PEARS. FAMILY HISTORY: Her mother was in the room and states that she had stents in her heart in her 60s. Her father in his 50s of myocardial infarction. She has a brother with history of dover ry artery disease. SOCIAL HISTORY: The patient is just her current . She had a son recently . She i s an active smoker, a pack a day for over 30 years. Denies alcohol or recreational drug abuse. REVIEW OF SYSTEMS: Denies recent fevers, chills, sweats. No recent changes in medications. Positiv e for the above. Acute onset of chest pain, pressure, heaviness, and nausea and inability to smoke. Diarrhea in the distant past, but no recent recurrence. No new orthopnea. No swelling. PHYSICAL EXAMINATION: On exam, the patient is centripetally very obese, older middle aged woman, lasha earing older than her stated age. She appears in distress, uncomfortable and acutely ill. Skin: Wa rm and dry. HEENT: Pupils were equal and round. Mucous membranes moderately moist. Breath sounds diminished with no wheezing, rales, or rhonchi. Coronary: Distant S1, S2, regular. I did not appre ciate systolic or diastolic murmurs. Abdomen: Rotund, active bowel sounds, soft. Hard to examine b ecause of nausea. Lower extremities had strong dorsalis pedal pulses bilaterally and palpable radial pulses bilaterally, and were free of edema. DIAGNOSTIC STUDIES/LAB DATA: EKGs on arrival on 11/11/17 at 1349 shows a regular rhythm, 94 beats pe r minute, QRS axis +60, normal intraventricular conduction times, P wave is hard to see but may be bu ried in T-waves. Poor R-wave progression in V1 through V3 with QS in V1 through V2, COPD versus old anterior septal OR. Small QS in lead III, variant of normal subtle ST elevations in lead III and aVF with motion artifact and mild ST depression in the lateral leads I, aVL, V4 through V6. No old EKG t o compare. EKG #2 at 0457 shows a regular rhythm, 78 beats per minute, QRS axis + 60, normal intraventricular co nduction times, ST elevation in lead III, more pronounced, interval resolution of the lateral ST depr ession, poor R-wave progression unchanged. ECG #3. ECG on 11/12/17 at close to midnight again showed mild ST elevation in lead III. Labs, white count 10.3, hemoglobin 12.5, hematocrit 37, platelets 242. INR is 0.97. PTT 29 initiall y and 55.7 at 9 this morning. Sodium 136, potassium 5.2, chloride 106, bicarb 22, glucose 262, BUN 2 3, creatinine 0.91, lactic acid initially 4.2 and then improved to 2.8. AST of 82, ALT 105. Troponi n #1, 4.91; #2, 4.28; #3, 4.87; #4, 5.74. Total cholesterol 162, triglycerides 156, LDL cholesterol 103, and HDL cholesterol 28. Bedside echo performed by me on the [employer] showed mild left ventricular hypertrophy. The apex move d well. The very base of the septum appeared dyskinetic and the lateral wall appeared relatively hyp okinetic. Two-chamber view is hard to get. On a short axis view, the apex again moved well. The ba se of inferolateral wall appeared relatively hypokinetic. Right ventricle appeared mildly hypokineti c. Her overall ejection fraction was estimated at roughly 50%. IMPRESSION: In summary, Benita Guerrero is a 57-year-old woman with atherosclerotic risk of active smoking, adult onset diabetes, dyslipidemia, significant obesity and strong family history of early atherosclerotic heart disease, who presents with 3 days of anginal chest pain, abnormal EKG, elevated troponins, and ongoing angina. 1. I agree with aspirin, heparin drip, nitrates for pain control and reinitiation of statin. 2. As the patient's heart rate was in the 70s when I saw her, I initiated beta- magali and I recomm ended urgent cath. Dr. Matson was contacted as well as the STEMI team. 3. Her rhythm could be junctional, but it could also be an ectopic atrial rhythm and this will need to be watched carefully. 4. It should be noted that after slow IV push of Lopressor, the patient's nausea worsened and her bl ood pressure dropped transiently. Nitroglycerin drip was stopped, IV fluid was started with a 1 L jose nimo. She vomited and then vitals improved as she was going to the optical laboratory technician. 5. Further recommendations will be made pending the results of her cath and clinical course. ADDENDUM: Cath: She had a 100% occluded right coronary artery lesion with extensive prolonged inter vention by Dr. Matson, but there was christianity of flow proximally. Smoking cessation was discussed aggressively with the during updates as he smokes too. Again , additional recommendations will be made pending her clinical course. [id number]/[facility] #: [id number]
[2017-11-13 05:48] LABS: ABS Basophils 0.1 10^3/ul (0-0.2); ABS Eosinophils 0.1 10^3/ul (0-0.6); ABS Lymphocytes 2.1 10^3/ul (1.0-4.8); ABS Nucleated RBC 0 10^3/ul; Eosinophil % 0.5 % (0-6); Hematocrit 35 % (35-47); Hemoglobin 11.7 g/dl (12.0-16.0); Lymphocyte % 19.1 % (25-47); Mean Corpuscular HGB Conc 34 g/dl (31-36); Mean Corpuscular Hemoglobin 30 pg (27-31); Mean Corpuscular Volume 91 fL (80-97); Mean Platelet Volume 8.1 um3 (7.4-10.4); Nucleated Red Blood Cells % 0.1; Platelet Count 208 10^3/ul (150-450); Red Blood Count 3.84 10^6/ul (4.0-5.4); Red Cell Distribution Width 15 % (10.5-15); White Blood Count 11.2 10^3/ul (3.5-10.8)
[2017-11-13 06:04] LABS: EGFR Non-African American 62.9 (>60)
[2017-11-13] MEDS: Docusate CAP* 100 MG PO SCH ×2 (07:32→21:07)
[2017-11-13] MEDS: Metoprolol Tartrate TAB* 25 MG PO SCH (07:33)
[2017-11-13] MEDS: Gabapentin CAP(*) 300 MG PO SCH ×3 (07:33→21:07)
[2017-11-13] MEDS: Aspirin EC TAB* 81 MG TAB.EC PO SCH (07:33)
[2017-11-13] MEDS: Ticagrelor* 90 MG TAB PO SCH ×2 (09:12→21:07)
--- NOTE | 2017-11-13 09:58 | ECHO ---
Patient: JAMAAL VALLE [facility] Rec#: [id number] : 1960 Date: 11/13/2017 Age: 57y Height: 160.02 cm / 63.0 in Weight: 87.09 kg / 191.9 lbs Sex: F BSA: 1.9 Room#: ICU-3 Admit Date#: 11/12/2017 Type: Inpatient Referring: Jacob Rowe MD Reading: Vinita Lucero MD Table Inspector: Jovita Arce RDCS CC: Leobardo Bernardo MD Transthoracic Echocardiogram Indication: NSTEMI BP: 125/78 HR: 57 Rhythm: Bradycardia Findings History: CAD, DMII, dyslipidemia, smoker, SHERRON on CPAP. Technical Comments: The study quality is fair. The study is technically limited due to patient body habitus. Completed at 0915. Left Ventricle: The left ventricular chamber size is normal. Mild concentric left ventricular hypertrophy is observed. There is a focal wall motion abnormality present.Severe hypokinesis and akinesis of the basilar 1/2 of the inferior wall and base of the posterior wall. There is mildly decreased left ventricular systolic function. The estimated ejection fraction is 45-50%. There is septal flattening of the interventricular septum consistent with right ventricular volume or pressure overload. Normal left ventricular diastolic filling is observed. Left Atrium: The left atrium is mildly dilated. Right Ventricle: Moderator Band present. The right ventricle is mildly dilated. The right ventricular global systolic function is mildly to moderately reduced. Right Atrium: The right atrium is moderately dilated. Aortic Valve: The aortic valve is trileaflet. The aortic valve leaflets are mildly thickened. There is no evidence of aortic regurgitation. There is no evidence of aortic stenosis. Mitral Valve: The mitral valve leaflets are mildly thickened. There is mild to moderate mitral regurgitation. There is no evidence of mitral stenosis. Tricuspid Valve: The tricuspid valve leaflets are normal. There is mild tricuspid regurgitation. The right ventricular systolic pressure is estimated at 31 mmHg. There is evidence that pulmonary hypertension may be underestimated. There is no tricuspid stenosis. Pulmonic Valve: The pulmonic valve structure is not well visualized. There is a trace pulmonic regurgitation. There is no pulmonic stenosis. Pericardium: There is no significant pericardial effusion. Aorta: There is no dilatation of the ascending aorta. There is no dilatation of the aortic arch. The aortic root is normal in size. Pulmonary Artery: The main pulmonary artery appears normal. Venous: The inferior vena cava is dilated. There is less than 50% respiratory change in the inferior vena cava dimension. Conclusions Mild concentric left ventricular hypertrophy is observed. Severe hypokinesis and akinesis of the basilar 1/2 of the inferior wall and base of the posterior wall. The estimated ejection fraction is 45-50%. The right ventricle is mildly dilated. The right ventricular global systolic function is mildly to moderately reduced. Bi atrial enlargement. The aortic valve leaflets are mildly thickened with good function. There is mild to moderate mitral regurgitation, multiple jets. There is mild tricuspid regurgitation. The right ventricular systolic pressure is estimated at 31 mmHg at a minimum, probably underestimated. No prior echo to compare. Measurements Name Value Normal Range RVIDd (AP) 2D 3 cm (0.9 - 2.6) RVDdMajor (2D) 4.6 cm (2.2 - 4.4) RAd ISD 4CH 6 cm (3.4 - 4.9) RA (A4C)W 5.4 cm (2.9 - 4.6) IVSd (2D) 1.1 cm (0.6 - 1) LVPWd (2D) 1.1 cm (0.6 - 1) LVIDd (2D) 4.5 cm (3.6 - 5.4) LVIDs (2D) 3.7 cm - LV FS (2D) 17 % (25 - 45) Aortic Annulus 1.8 cm (1.4 - 2.6) Ao root diameter (2D) 2.9 cm (2.1 - 3.5) Ascending Ao 2.8 cm (2.1 - 3.4) Aortic arch 2.7 cm (1.8 - 3.4) LA dimension (AP) 2D 4.2 cm (2.3 - 3.8) LAd ISD 4CH 4.9 cm (2.9 - 5.3) LA ISD 4CH W 4.5 cm (2.5 - 4.5) Name Value Normal Range LA ESV SP 4CH (A/L) 67 ml - LA ESV SP 2CH (A/L) 64 ml - LA ESV BP (A/L) 67 ml - LA ESV BP (A/L) index 35 ml/m2 - LA ESV SP 4CH (MOD) 63 ml - LA ESV SP 2CH (MOD) 63 ml - Name Value Normal Range MV E-wave Vmax 1.17 m/sec - MV deceleration time 192.4 msec - MV A-wave Vmax 1.05 m/sec - MV E:A ratio 1.11 ratio - LV septal e' Vmax 0.08 m/sec - LV lateral e' Vmax 0.11 m/sec - LV E:e' septal ratio 14.63 ratio - LV E:e' lateral ratio 10.64 ratio - Name Value Normal Range AV Vmax 1.96 m/sec - AV VTI 37.13 cm - AV peak gradient 15.39 mmHg - AV mean gradient 9.07 mmHg - LVOT Vmax 1.4 m/sec - LVOT VTI 24.75 cm - LVOT peak gradient 7.37 mmHg - LVOT mean gradient 4.92 mmHg - SHREYA Vmax 1.3 m/sec - Name Value Normal Range MR Vmax 5.07 m/sec - MR VTI 147 cm - MR flow (PISA) 8.9 ml/sec - MR ERO 0.02 cm2 - MR PISA radius 0.2 cm - MR alias Vmax 37.1 cm/sec - Name Value Normal Range TR Vmax 2 m/sec - TR peak gradient 16 mmHg - RAP 15 mmHg - RVSP 31 mmHg - IVC diameter 2.3 cm - Name Value Normal Range PV Vmax 0.74 m/sec - PV peak gradient 2.22 mmHg -
[2017-11-13] MEDS ORDERED: Furosemide TAB* 20 MG PO ONE (12:24)
--- NOTE | 2017-11-13 13:20 | PN ---
Subjective Date of Service: 11/13/17 - CC: SOB, pleuritic CP and dizzy Interval History: The patient has no more of the anginal CP. No nausea. Pleuritic CP and SOB. Pleuritic CP is upper substernal area. Medications Active Medications: Albuterol (Ventolin 2.5 Mg/3 Ml Neb.Anastacia*) 2.5 mg INH Q2H PRN PRN Reason: SOB/WHEEZING Aspirin (Aspirin Ec Tab*) 81 mg PO DAILY [facility] Last Admin: 11/13/17 07:33 Dose: 81 mg Atorvastatin Calcium (Lipitor*) 80 mg PO 1700 [facility] Last Admin: 11/12/17 16:16 Dose: 80 mg Docusate Sodium (Colace Cap*) 200 mg PO BID [facility] Last Admin: 11/13/17 07:32 Dose: 200 mg Gabapentin (Neurontin Cap(*)) 300 mg PO TID [facility] Last Admin: 11/13/17 07:33 Dose: 300 mg Hydromorphone HCl (Dilaudid Inj*) 1 mg IV SLOW PU Q2H PRN PRN Reason: PAIN Last Admin: 11/12/17 08:56 Dose: 1 mg Melatonin (Melatonin (Nf)) 3 mg PO BEDTIME PRN; Protocol PRN Reason: Sleep Metoprolol Tartrate (Lopressor Tab*) 12.5 mg PO QID [facility] Last Admin: 11/13/17 07:33 Dose: 12.5 mg Nicotine (Nicotine Inhaler*) 10 mg INH Q2H PRN PRN Reason: CRAVING Nitroglycerin (Nitroglycerin Tab 0.4 Mg*) 0.4 mg SL Q5M PRN PRN Reason: ANGINA Omeprazole (Prilosec Cap*) 20 mg PO QPM [facility] Last Admin: 11/12/17 19:43 Dose: 20 mg Ondansetron HCl (Zofran Inj*) 4 mg IV Q6H PRN PRN Reason: NAUSEA Last Admin: 11/12/17 08:21 Dose: 4 mg Ropinirole HCl (Requip*) 6 mg PO QPM [facility] Last Admin: 11/12/17 19:44 Dose: 6 mg Ticagrelor (Brilinta*) 90 mg PO BID [facility] Last Admin: 11/13/17 09:12 Dose: 90 mg Objective Vital Signs: Temp Pulse Resp BP Pulse Ox 98.9 F 64 24 105/52 94 04/01/18 11:11 11/13/17 12:03 11/13/17 12:03 11/13/17 12:03 11/13/17 12:03 Oxygen Devices in Use Now: None Appearance: centripitally obese, lying in gerichair. Eyes: No Scleral Icterus, PERRLA Neck: NL Appearance and Movements; NL JVP, Trachea Midline, No Thyroid Enlargement, Masses Respiratory: Symmetrical Chest Expansion and Respiratory Effort, Clear to Auscultation Cardiovascular: NL Sounds; No Murmurs; No JVD, RRR, No Edema Abdominal: No Hepatosplenomegaly Extremities: No Edema, No Clubbing, Cyanosis Skin: No Rash or Ulcers Neurological: Alert and Oriented x 3 Lines/Tubes/Other Access: Clean, Dry and Intact Peripheral IV Laboratory Results: 11/13/17 05:38 11/13/17 05:38 INR (Anticoag Therapy) 0.97 (0.77-1.02) 11/11/17 23:18 APTT 55.7 seconds (26.0-36.3) H 11/12/17 09:10 Total Bilirubin 0.40 mg/dL (0.2-1.0) 11/11/17 23:18 AST 82 U/L (13-39) H 11/11/17 23:18 ALT 105 U/L (7-52) H 11/11/17 23:18 Alkaline Phosphatase 102 U/L (34-104) 11/11/17 23:18 CK-MB (CK-2) 46.2 ng/mL (0.6-6.3) H 11/13/17 02:00 B-Natriuretic Peptide 170 pg/mL (-100) H 11/11/17 23:18 Total Protein 6.6 g/dL (6.4-8.9) 11/11/17 23:18 Albumin 3.8 g/dL (3.2-5.2) 11/11/17 23:18 Globulin 2.8 g/dL (2-4) 11/11/17 23:18 Albumin/Globulin Ratio 1.4 (1-3) 11/11/17 23:18 Triglycerides 156 mg/dL 11/12/17 04:54 Cholesterol 162 mg/dL 11/12/17 04:54 LDL Cholesterol 103 mg/dL 11/12/17 04:54 HDL Cholesterol 28.3 mg/dL 11/12/17 04:54 TSH 2.12 mcIU/mL (0.34-5.60) 11/11/17 23:18 11/12/17 11/12/17 11/12/17 04:54 09:10 13:57 Troponin I 4.87 H* 5.74 H* 6.10 H* 11/12/17 11/13/17 19:52 02:00 Troponin I 14.75 H* 14.15 H* Diagnostic Imaging: ECHO today: EF 45-50%, Inf/post akinesis. RV hypok, mild to mod MR, mild TR, PA pr 31 mmHg. Cath 11/12/17: Occluded prox RCA to multiple stents, left side had branch and distal disease, small vessels on medical managment. EKG Data: Junction rhythm persists. QS V1V2, near resolution of STelevaten III. Assessment/Plan 57 yo female presented 3 days into AL, several stents to occluded RCA, medical manage for diffuse CAD. Improved, but pleuritic CP and dizzy. CAD: Smoking cessation discussed, consult ordered for assistance to quit. Need center for healthy living on discharge. Continue Statin for LDL and dietary improvement for TG's BP low normal. Decrease beta magali and add ACEI. DM: Needs improved diet. Ordered nutrician cousiling CP: Possibly brochospasm, try nebulizer. Could also be Brillinta, liberlize caffeine Dizzy: On new meds including diuretics and also could be related to AL and decrease in LV and RV function. Attempt to optimize medications and time may improve. Junctional rhythm could be contributing causing as well, this is likely due to ischemia, may recover with time, continue to monitor.
--- NOTE | 2017-11-13 15:12 | RAD ---
HISTORY: Shortness of breath COMPARISONS: November 11, 2017 VIEWS: 1: frontal portable view of the chest at 2:36 PM FINDINGS: LINES AND TUBES: None. CARDIOMEDIASTINAL SILHOUETTE: The cardiomediastinal silhouette is normal for portable technique. PLEURA: The costophrenic angles are sharp. No pleural abnormalities are noted. LUNG PARENCHYMA: The lungs are clear. ABDOMEN: The upper abdomen is clear. There is no subphrenic gas. BONES AND SOFT TISSUES: The patient is status post anterior cervical fusion. IMPRESSION: NO ACTIVE CARDIOPULMONARY DISEASE.
[2017-11-13] MEDS: rOPINIRole TAB* 4 MG PO SCH (16:53)
[2017-11-13] MEDS: Atorvastatin* 80 MG TAB PO SCH (16:53)
[2017-11-13] MEDS: Omeprazole CAP* 20 MG PO SCH (16:55)
--- NOTE | 2017-11-13 17:12 | PN ---
Subjective Date of Service: 11/13/17 Interval History: complains of chest "soreness" when she takes a deep breath, when she sits up. It gets better when she lies down. She also complains of shortness of breath with exertion, none when she lies flat. Social History: Unchanged from Admission Past Medical History: Unchanged from Admission Objective Active Medications: Albuterol (Ventolin 2.5 Mg/3 Ml Neb.Anastacia*) 2.5 mg INH Q2H PRN PRN Reason: SOB/WHEEZING Last Admin: 11/13/17 14:26 Dose: 2.5 mg Aspirin (Aspirin Ec Tab*) 81 mg PO DAILY [facility] Last Admin: 11/13/17 07:33 Dose: 81 mg Atorvastatin Calcium (Lipitor*) 80 mg PO 1700 [facility] Last Admin: 11/13/17 16:53 Dose: 80 mg Docusate Sodium (Colace Cap*) 200 mg PO BID [facility] Last Admin: 11/13/17 07:32 Dose: 200 mg Gabapentin (Neurontin Cap(*)) 300 mg PO TID [facility] Last Admin: 11/13/17 13:37 Dose: 300 mg Hydromorphone HCl (Dilaudid Inj*) 1 mg IV SLOW PU Q2H PRN PRN Reason: PAIN Last Admin: 11/12/17 08:56 Dose: 1 mg Melatonin (Melatonin (Nf)) 3 mg PO BEDTIME PRN; Protocol PRN Reason: Sleep Metoprolol Succinate (Toprol Xl Tab*) 12.5 mg PO DAILY [facility] Nicotine (Nicotine Inhaler*) 10 mg INH Q2H PRN PRN Reason: CRAVING Nitroglycerin (Nitroglycerin Tab 0.4 Mg*) 0.4 mg SL Q5M PRN PRN Reason: ANGINA Omeprazole (Prilosec Cap*) 20 mg PO QPM [facility] Last Admin: 11/13/17 16:55 Dose: 20 mg Ondansetron HCl (Zofran Inj*) 4 mg IV Q6H PRN PRN Reason: NAUSEA Last Admin: 11/12/17 08:21 Dose: 4 mg Ramipril (Altace Cap*) 2.5 mg PO DAILY [facility] Ropinirole HCl (Requip*) 6 mg PO QPM [facility] Last Admin: 11/13/17 16:53 Dose: 6 mg Ticagrelor (Brilinta*) 90 mg PO BID [facility] Last Admin: 11/13/17 09:12 Dose: 90 mg Vital Signs - 8 hr 11/13/17 11/13/17 11/13/17 09:30 09:46 10:00 Temperature Pulse Rate 58 62 61 Respiratory 21 32 18 Rate Blood Pressure 110/69 100/66 (mmHg) O2 Sat by Pulse 97 96 97 Oximetry 11/13/17 11/13/17 11/13/17 10:15 10:57 11:00 Temperature Pulse Rate 60 59 59 Respiratory 29 30 30 Rate Blood Pressure 124/69 147/62 (mmHg) O2 Sat by Pulse 95 96 95 Oximetry 11/13/17 11/13/17 11/13/17 11:01 11:11 11:46 Temperature 98.9 F Pulse Rate 59 60 Respiratory 30 34 Rate Blood Pressure 121/71 105/49 (mmHg) O2 Sat by Pulse 94 96 Oximetry 11/13/17 11/13/17 11/13/17 12:00 12:03 13:00 Temperature Pulse Rate 69 64 74 Respiratory 27 24 23 Rate Blood Pressure 105/52 (mmHg) O2 Sat by Pulse 94 94 97 Oximetry 11/13/17 11/13/17 11/13/17 14:00 14:59 15:00 Temperature Pulse Rate 68 70 Respiratory 29 29 30 Rate Blood Pressure 118/62 145/74 (mmHg) O2 Sat by Pulse 94 96 Oximetry 11/13/17 11/13/17 11/13/17 15:19 16:00 16:57 Temperature 100.3 F Pulse Rate 76 Respiratory 31 16 Rate Blood Pressure 124/75 (mmHg) O2 Sat by Pulse 94 Oximetry Oxygen Devices in Use Now: None Appearance: alert, no distress, wearing cpap Eyes: No Scleral Icterus Ears/Nose/Mouth/Throat: NL Teeth, Lips, Gums Neck: NL Appearance and Movements; NL JVP, Trachea Midline Respiratory: Symmetrical Chest Expansion and Respiratory Effort, Clear to Auscultation Cardiovascular: NL Sounds; No Murmurs; No JVD, RRR Abdominal: NL Sounds; No Tenderness; No Distention, No Hepatosplenomegaly, - - right groin site with no hematoma or tenderness Lymphatic: No Cervical Adenopathy Extremities: No Edema, - - distal pulses 2+ b/l Skin: No Rash or Ulcers Neurological: Alert and Oriented x 3 Result Diagrams: 11/13/17 05:38 11/13/17 05:38 Microbiology and Other Data: Microbiology 11/12/17 04:18 Nasal Screen MRSA (PCR)(TARAN) - Final Nasal Mrsa Not Detected Assess/Plan/Problems-Billing Assessment: 57 yo female with history of obesity, tobacco abuse, admitted with chest pain since Tuesday. 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
[2017-11-13] MEDS ORDERED: diPHENhydraMINE PO* 25 MG PO ONE (20:24)
[2017-11-13] MEDS: Ramipril CAP* 2.5 MG PO SCH (21:09)
[2017-11-14 05:58] LABS: ABS Basophils 0.1 10^3/ul (0-0.2); ABS Eosinophils 0.2 10^3/ul (0-0.6); ABS Lymphocytes 2.2 10^3/ul (1.0-4.8); ABS Monocytes 0.9 10^3/ul (0-0.8); ABS Neutrophils 7.3 10^3/ul (1.5-7.7); ABS Nucleated RBC 0 10^3/ul; Eosinophil % 1.7 % (0-6); Hematocrit 32 % (35-47); Hemoglobin 11.2 g/dl (12.0-16.0); Lymphocyte % 20.3 % (25-47); Mean Corpuscular HGB Conc 35 g/dl (31-36); Mean Corpuscular Hemoglobin 31 pg (27-31); Mean Corpuscular Volume 90 fL (80-97); Nucleated Red Blood Cells % 0.1; Platelet Count 162 10^3/ul (150-450); Red Blood Count 3.59 10^6/ul (4.0-5.4); Red Cell Distribution Width 15 % (10.5-15); White Blood Count 10.7 10^3/ul (3.5-10.8)
[2017-11-14 06:13] LABS: EGFR Non-African American 89.2 (>60)
[2017-11-14] MEDS: Metoprolol Tartrate TAB* 25 MG PO SCH ×2 (07:12→20:39)
[2017-11-14] MEDS: Docusate CAP* 100 MG PO SCH ×2 (08:56→20:39)
[2017-11-14] MEDS: Gabapentin CAP(*) 300 MG PO SCH ×3 (08:56→20:38)
[2017-11-14] MEDS: Ramipril CAP* 2.5 MG PO SCH (08:58)
[2017-11-14] MEDS: Aspirin EC TAB* 81 MG TAB.EC PO SCH (08:58)
[2017-11-14] MEDS: Ticagrelor* 90 MG TAB PO SCH ×2 (08:58→20:38)
[2017-11-14] MEDS ORDERED: Metoprolol Succinate XL TAB* 25 MG PO SCH (09:00)
--- NOTE | 2017-11-14 11:03 | PN ---
Subjective Date of Service: 11/14/17 Interval History: Pt was orthostatic and with intermittent junctional rhythm 2 days ago, now stable in NSR. Denies CP/SOB c/o itchy eyes and runny nose Social History: Unchanged from Admission Past Medical History: Unchanged from Admission Objective Active Medications: Albuterol (Ventolin 2.5 Mg/3 Ml Neb.Anastacia*) 2.5 mg INH Q2H PRN PRN Reason: SOB/WHEEZING Last Admin: 11/13/17 14:26 Dose: 2.5 mg Aspirin (Aspirin Ec Tab*) 81 mg PO DAILY [facility] Last Admin: 11/14/17 08:58 Dose: 81 mg Atorvastatin Calcium (Lipitor*) 80 mg PO 1700 [facility] Last Admin: 11/13/17 16:53 Dose: 80 mg Docusate Sodium (Colace Cap*) 200 mg PO BID [facility] Last Admin: 11/14/17 08:56 Dose: 200 mg Gabapentin (Neurontin Cap(*)) 300 mg PO TID [facility] Last Admin: 11/14/17 08:56 Dose: 300 mg Hydromorphone HCl (Dilaudid Inj*) 1 mg IV SLOW PU Q2H PRN PRN Reason: PAIN Last Admin: 11/12/17 08:56 Dose: 1 mg Melatonin (Melatonin (Nf)) 3 mg PO BEDTIME PRN; Protocol PRN Reason: Sleep Metoprolol Succinate (Toprol Xl Tab*) 12.5 mg PO DAILY [facility] Last Admin: 11/14/17 08:57 Dose: 12.5 mg Nicotine (Nicotine Inhaler*) 10 mg INH Q2H PRN PRN Reason: CRAVING Nitroglycerin (Nitroglycerin Tab 0.4 Mg*) 0.4 mg SL Q5M PRN PRN Reason: ANGINA Omeprazole (Prilosec Cap*) 20 mg PO QPM [facility] Last Admin: 11/13/17 16:55 Dose: 20 mg Ondansetron HCl (Zofran Inj*) 4 mg IV Q6H PRN PRN Reason: NAUSEA Last Admin: 11/12/17 08:21 Dose: 4 mg Ramipril (Altace Cap*) 2.5 mg PO DAILY [facility] Last Admin: 11/14/17 08:58 Dose: 2.5 mg Ropinirole HCl (Requip*) 6 mg PO QPM [facility] Last Admin: 11/13/17 16:53 Dose: 6 mg Ticagrelor (Brilinta*) 90 mg PO BID [facility] Last Admin: 11/14/17 08:58 Dose: 90 mg Vital Signs - 8 hr 11/14/17 11/14/17 11/14/17 03:00 04:00 04:24 Temperature 98.7 F Pulse Rate 74 76 Respiratory 19 24 25 Rate Blood Pressure 122/66 127/69 (mmHg) O2 Sat by Pulse 93 92 Oximetry 11/14/17 11/14/17 11/14/17 05:00 06:00 07:00 Temperature Pulse Rate 74 78 76 Respiratory 20 32 24 Rate Blood Pressure 128/62 117/70 114/64 (mmHg) O2 Sat by Pulse 91 96 95 Oximetry 11/14/17 11/14/17 11/14/17 07:15 07:31 08:00 Temperature 99.3 F Pulse Rate 76 Respiratory 20 22 Rate Blood Pressure 113/64 (mmHg) O2 Sat by Pulse 94 Oximetry 11/14/17 11/14/17 09:00 10:00 Temperature Pulse Rate 79 Respiratory 23 22 Rate Blood Pressure 124/62 (mmHg) O2 Sat by Pulse 96 Oximetry Oxygen Devices in Use Now: None Appearance: 57 yo f in nAD, AAOx3 Eyes: No Scleral Icterus, PERRLA Ears/Nose/Mouth/Throat: NL Teeth, Lips, Gums, Mucous Membranes Moist Neck: NL Appearance and Movements; NL JVP, Trachea Midline Respiratory: Symmetrical Chest Expansion and Respiratory Effort, Clear to Auscultation Cardiovascular: NL Sounds; No Murmurs; No JVD, RRR, No Edema Abdominal: NL Sounds; No Tenderness; No Distention, No Hepatosplenomegaly Lymphatic: No Cervical Adenopathy Extremities: No Edema, No Clubbing, Cyanosis Skin: No Rash or Ulcers, No Nodules or Sclerosis Neurological: Alert and Oriented x 3, NL Muscle Strength and Tone Result Diagrams: 11/14/17 05:45 11/14/17 05:45 Microbiology and Other Data: Microbiology 11/12/17 04:18 Nasal Screen MRSA (PCR)(TARAN) - Final Nasal Mrsa Not Detected Assess/Plan/Problems-Billing Assessment: 57 yo female with history of obesity, tobacco abuse, admitted with chest pain - Patient Problems (1) NSTEMI (non-ST elevated myocardial infarction) Comment: s/p PCI to RCA right groin site okay continue metoprolol, asa, statin, brilinta farzaneh inhibitor started by Dr. Lucero also complains of sob with ambulation, which may be related to brilinta; CXR does not show any pulmonary edema or effusions TTE shows ef 45-50% with inferior wall hypokinesis (2) DM2 (diabetes mellitus, type 2) Comment: Hb A1C 7.7 consistent with dx of DM2, nutrition consulted re: DM diet Supect pt's sugars may be able to be diet controlled. Pt was aware of dx of DM before, but not following diet recommendations prior (3) Tobacco abuse Comment: counseled on cessation x 5 min on 11/14/17, not planning to smoke "ever again" (4) DVT prophylaxis Comment: HSQ Status and Disposition: inpatient
[2017-11-14 12:21] LABS: ABS Basophils 0.1 10^3/ul (0-0.2); ABS Eosinophils 0.2 10^3/ul (0-0.6); ABS Lymphocytes 1.7 10^3/ul (1.0-4.8); ABS Monocytes 0.9 10^3/ul (0-0.8); ABS Neutrophils 6.7 10^3/ul (1.5-7.7); ABS Nucleated RBC 0 10^3/ul; Eosinophil % 1.6 % (0-6); Hematocrit 32 % (35-47); Hemoglobin 10.9 g/dl (12.0-16.0); Lymphocyte % 17.5 % (25-47); Mean Corpuscular HGB Conc 34 g/dl (31-36); Mean Corpuscular Hemoglobin 30 pg (27-31); Mean Corpuscular Volume 89 fL (80-97); Mean Platelet Volume 8.2 um3 (7.4-10.4); Nucleated Red Blood Cells % 0.1; Platelet Count 164 10^3/ul (150-450); Red Blood Count 3.58 10^6/ul (4.0-5.4); Red Cell Distribution Width 15 % (10.5-15); White Blood Count 9.5 10^3/ul (3.5-10.8)
[2017-11-14 12:29] LABS: INR 1.09 (0.77-1.02)
[2017-11-14] MEDS: Captopril TAB* 12.5 MG PO SCH ×2 (13:51→20:39)
[2017-11-14] MEDS: Heparin VIAL(*) 5000 UNITS/ML VIAL (FIVE THOUSAND) SUBCUT SCH ×2 (13:51→20:41)
[2017-11-14] MEDS: Fluticasone NASAL SPRAY 50MCG* 16 gm SPRAY BTL BOTH NARES SCH (14:15)
[2017-11-14] MEDS: Omeprazole CAP* 20 MG PO SCH (16:26)
[2017-11-14] MEDS: Atorvastatin* 80 MG TAB PO SCH (16:26)
[2017-11-14] MEDS: rOPINIRole TAB* 4 MG PO SCH (17:58)
[2017-11-14] MEDS ORDERED: diPHENhydraMINE PO* 25 MG PO ONE (19:53)
[2017-11-15] MEDS: Heparin VIAL(*) 5000 UNITS/ML VIAL (FIVE THOUSAND) SUBCUT SCH ×3 (05:41→22:02)
[2017-11-15] MEDS ORDERED: Mometasone NASAL (NF) SPRAY BOTH NARES SCH (09:00)
[2017-11-15] MEDS: Metoprolol Tartrate TAB* 25 MG PO SCH (09:09)
[2017-11-15] MEDS: Ticagrelor* 90 MG TAB PO SCH ×2 (09:09→22:00)
[2017-11-15] MEDS: Fluticasone NASAL SPRAY 50MCG* 16 gm SPRAY BTL BOTH NARES SCH (09:09)
[2017-11-15] MEDS: Gabapentin CAP(*) 300 MG PO SCH ×3 (09:09→22:00)
[2017-11-15] MEDS: Captopril TAB* 12.5 MG PO SCH ×3 (09:10→22:00)
[2017-11-15] MEDS: Aspirin EC TAB* 81 MG TAB.EC PO SCH (09:10)
[2017-11-15] MEDS: Docusate CAP* 100 MG PO SCH ×2 (09:10→22:01)
--- NOTE | 2017-11-15 10:12 | PN ---
Subjective Date of Service: 11/15/17 Interval History: Eyes still feel itchy but congestion is better. No new complaints otherwise Social History: Unchanged from Admission Past Medical History: Unchanged from Admission Objective Active Medications: Albuterol (Ventolin 2.5 Mg/3 Ml Neb.Anastacia*) 2.5 mg INH Q2H PRN PRN Reason: SOB/WHEEZING Last Admin: 11/13/17 14:26 Dose: 2.5 mg Aspirin (Aspirin Ec Tab*) 81 mg PO DAILY [facility] Last Admin: 11/15/17 09:10 Dose: 81 mg Atorvastatin Calcium (Lipitor*) 80 mg PO 1700 [facility] Last Admin: 11/14/17 16:26 Dose: 80 mg Captopril (Capoten Tab*) 6.25 mg PO TID [facility] Last Admin: 11/15/17 09:10 Dose: 6.25 mg Docusate Sodium (Colace Cap*) 200 mg PO BID [facility] Last Admin: 11/15/17 09:10 Dose: 200 mg Fluticasone Propionate (Flonase Nasal [place] 50mcg*) 2 spray BOTH NARES DAILY [facility] Last Admin: 11/15/17 09:09 Dose: 2 spray Gabapentin (Neurontin Cap(*)) 300 mg PO TID [facility] Last Admin: 11/15/17 09:09 Dose: 300 mg Heparin Sodium (Porcine) (Heparin Vial(*)) 5,000 units SUBCUT Q8HR [facility] Last Admin: 11/15/17 05:41 Dose: 5,000 units Hydromorphone HCl (Dilaudid Inj*) 1 mg IV SLOW PU Q2H PRN PRN Reason: PAIN Last Admin: 11/12/17 08:56 Dose: 1 mg Melatonin (Melatonin (Nf)) 3 mg PO BEDTIME PRN; Protocol PRN Reason: Sleep Metoprolol Tartrate (Lopressor Tab*) 12.5 mg PO BID [facility] Last Admin: 11/15/17 09:09 Dose: 12.5 mg Nicotine (Nicotine Inhaler*) 10 mg INH Q2H PRN PRN Reason: CRAVING Last Admin: 11/14/17 13:50 Dose: 10 mg Nitroglycerin (Nitroglycerin Tab 0.4 Mg*) 0.4 mg SL Q5M PRN PRN Reason: ANGINA Omeprazole (Prilosec Cap*) 20 mg PO QPM [facility] Last Admin: 11/14/17 16:26 Dose: 20 mg Ondansetron HCl (Zofran Inj*) 4 mg IV Q6H PRN PRN Reason: NAUSEA Last Admin: 11/12/17 08:21 Dose: 4 mg Ropinirole HCl (Requip*) 6 mg PO QPM [facility] Last Admin: 11/14/17 17:58 Dose: 6 mg Ticagrelor (Brilinta*) 90 mg PO BID [facility] Last Admin: 11/15/17 09:09 Dose: 90 mg Vital Signs - 8 hr 11/15/17 11/15/17 11/15/17 03:52 07:25 09:09 Temperature 98.6 F 99.0 F Pulse Rate 84 80 Respiratory 20 14 16 Rate Blood Pressure 127/58 127/68 (mmHg) O2 Sat by Pulse 97 98 Oximetry Oxygen Devices in Use Now: None Appearance: 57 yo F in nAD, AAOx3 Eyes: No Scleral Icterus, PERRLA Ears/Nose/Mouth/Throat: NL Teeth, Lips, Gums, Mucous Membranes Moist Neck: NL Appearance and Movements; NL JVP, Trachea Midline Respiratory: Symmetrical Chest Expansion and Respiratory Effort, Clear to Auscultation Cardiovascular: NL Sounds; No Murmurs; No JVD, RRR Abdominal: NL Sounds; No Tenderness; No Distention, No Hepatosplenomegaly Lymphatic: No Cervical Adenopathy Extremities: No Edema, No Clubbing, Cyanosis Skin: No Rash or Ulcers, No Nodules or Sclerosis Neurological: Alert and Oriented x 3, NL Muscle Strength and Tone Result Diagrams: 11/14/17 12:05 11/14/17 12:05 Microbiology and Other Data: Microbiology 11/12/17 04:18 Nasal Screen MRSA (PCR)(TARAN) - Final Nasal Mrsa Not Detected Assess/Plan/Problems-Billing Assessment: 57 yo female with history of obesity, tobacco abuse, admitted with chest pain - Patient Problems (1) NSTEMI (non-ST elevated myocardial infarction) Comment: s/p PCI to RCA continue metoprolol, asa, statin, brilinta farzaneh inhibitor started by cardiology ambulation /exercise tolerance improved TTE shows ef 45-50% with inferior wall hypokinesis (2) DM2 (diabetes mellitus, type 2) Comment: Hb A1C 7.7 consistent with dx of DM2, nutrition consulted re: DM diet Supect pt's sugars may be able to be diet controlled. Pt was aware of dx of DM before, but not following diet recommendations prior (3) Tobacco abuse Comment: counseled on cessation x 5 min on 11/14/17, not planning to smoke "ever again" (4) SHERRON (obstructive sleep apnea) Comment: cont CPAP (5) DVT prophylaxis Comment: HSQ Status and Disposition: inpatient
--- NOTE | 2017-11-15 11:30 | CATH ---
CC: Dr. Bernardo; Iliana Matson MD STENT REPORT: DATE OF PROCEDURE: 11/12/17 PRIMARY CARE PROVIDER: Dr. Bernardo. PROCEDURES: 1. Right common femoral artery access. 2. Bilateral selective coronary cineangiography. 3. Left heart catheterization. 4. Left ventriculography. 5. Stent placement RCA 2.5 x 28 Synergy drug-eluting stent, proximal RCA, distal overlapping 2.25 x 28 Synergy drug-eluting stent, deployed at low pressure, double bolus IC Integrilin. HISTORY: A 57-year-old obese diabetic with in retrospect prolonged ischemic chest pain 3 to 4 weeks ago, presenting with non-ST elevation infarct. In the ICU, she had continued chest pain, was hypoten sive post IV beta magali. Presenting lactate and BMP were elevated. Right femoral access was used because the right radial pulse was not palpable. PROCEDURE ACCESS: RFA sheath 6F. MEDICATIONS: 1. Subcu lidocaine. 2. IV Versed. 3. IV fentanyl. 4. Aspirin 324 mg chewed. 5. Brilinta 180 mg p.o. loading dose. 6. Heparin 5000 units, 2000 units, 2000 units double bolus IC Integrilin. 7. IV nitroglycerin drip. DIAGNOSTIC CATHETERS: 6FL 3.5, 6FR 4, 6F pigtail. GUIDING CATHETER: RCA 6FR4. The RCA revascularization was technically challenging because of extremely small distal vessel size a nd difficulty selecting RCA continuation after the acute marginal branch to access the distal vessel. This was accomplished using a 45- degree angled microcatheter with a 14 Runthrough NS wire after BM W and Whisper wire would not access the distal RCA. The proximal RCA was stented with a 2.5 x 28 Syn ergy drug-eluting stent after the occlusion point was crossed with a balloon catheter, deployed at 11 atmospheres 10 seconds. After the RCA continuation was accessed, an overlapping distal 2.25 x 28 mm drug-eluting stent was deployed, 8 atmospheres 20 seconds after distal RCA was predilated with a 1.2 x 20 mm balloon, followed by 2 x 20 mm balloon, each resulting in inadequate patency as well as nono cclusive local dissection. An over-sized stent was therefore deployed at low pressure. More distal RCA revascularization is not feasible because of extremely small vessel size. LV-gram was then perfo rmed. HEMODYNAMICS: First receiver/laborer pressure 107/65, post revascularization LV 138/26, no aortic valve grad ient on pullback. ANGIOGRAPHY: Left Main: Left main is relatively small in diameter, has 30% ostial stenosis. LAD: The LAD is small, diffusely irregular, it extends to the apex, the apical segment has diffuse n oncritical disease. The LAD supplies a small diagonal. Circumflex: The circumflex is moderate, not dominant, with a very small first marginal, and moderate second marginal which bifurcates, the more superior side branch is small in diameter, too small for intervention, has ostial 75% stenosis, then has moderate tubular stenosis, it is too small for interv ention. The larger inferior branch has a tubular 50 to 60% stenosis, is stentable. The AV groove co ntinuation supplies only a very small posterolateral. There are faint left to right collaterals with filling faintly of an extensive distal right coronary distribution with a very small caliber PDA and a number of very small posterolaterals. RCA: The RCA is occluded a centimeter from the origin. After the proximal occlusion was crossed, mi d RCA is very small, there is no distal filling. At the proximal stent placement, the stented segmen t is widely patent, but there is essentially no distal filling. Mid RV branch has diffuse nonobstruc tive disease, does have some capillary filling. After RCA continuation angioplasty, there is some an tegrade filling with extremely small diameter AV groove continuation, and visualization of a number o f very small inferior branches, the most distal part of the RPL circulation does not fill, was seen b y left to right collaterals. After final stent placement, there is no residual stenosis in the stent ed segment, again there is patency distally with very small vessel size, less than 0.5 mm. It is too small for revascularization or bypass. There is a capillary blush, there is filling of the PDA. LV Gram: Inferobasilar hypokinesis, estimated LVEF 45%, mild MR. CONCLUSION: 1. Three-vessel disease with very distal apical nonobstructive LAD disease, intermediate circumflex OM disease and RCA occlusion with extremely small distal RCA non-amenable to revascularization. The proximal RCA was revascularized successfully with over-sized stent extending into the RCA continuatio n. 2. LV systolic dysfunction with reduced LVEF. 3. Elevated LVEDP, otherwise normal left-sided hemodynamics. 4. Successful right femoral artery MynxGrip closure with puncture just above the bifurcation. [id number] #: [id number]
[2017-11-15] MEDS: rOPINIRole TAB* 4 MG PO SCH (16:37)
[2017-11-15] MEDS: Acetaminophen TAB* 325 MG PO PRN ×2 (16:38→22:04)
[2017-11-15] MEDS: Atorvastatin* 80 MG TAB PO SCH (16:38)
[2017-11-15] MEDS: Omeprazole CAP* 20 MG PO SCH (16:38)
[2017-11-15] MEDS ORDERED: Metoprolol Tartrate TAB* 25 MG PO SCH (21:00)
[2017-11-16] MEDS: Heparin VIAL(*) 5000 UNITS/ML VIAL (FIVE THOUSAND) SUBCUT SCH (05:49)
[2017-11-16 08:25] VITALS: BP 150/74
[2017-11-16] MEDS: Gabapentin CAP(*) 300 MG PO SCH (08:27)
[2017-11-16] MEDS: Fluticasone NASAL SPRAY 50MCG* 16 gm SPRAY BTL BOTH NARES SCH (08:28)
[2017-11-16] MEDS: Aspirin EC TAB* 81 MG TAB.EC PO SCH (08:28)
[2017-11-16] MEDS: Ticagrelor* 90 MG TAB PO SCH (08:28)
[2017-11-16] MEDS: Docusate CAP* 100 MG PO SCH (08:28)
[2017-11-16] MEDS ORDERED: Metoprolol Succinate XL TAB* 50 MG PO SCH (09:00)
[2017-11-16] MEDS ORDERED: Lisinopril TAB* 5 MG PO SCH (09:00)
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
--- NOTE | 2017-11-16 23:02 | DS ---
CC: Dr. Lucero; Dr. Matson; Dr. Bernardo * DISCHARGE SUMMARY: DATE OF ADMISSION: 11/12/17 DATE OF DISCHARGE: 11/16/17 DISCHARGE DIAGNOSIS: Zqz-[id number] myocardial infarction. SECONDARY DIAGNOSES: 1. Diabetes type 2. 2. Obstructive sleep apnea, on CPAP. 3. History of possible chronic obstructive pulmonary disease. 4. History of smoking. 5. Restless leg syndrome. 6. History of arthritis. 7. Gastroesophageal reflux disease. 8. Dyslipidemia. MEDICATIONS ON DISCHARGE: Include: 1. Brilinta 90 mg b.i.d. 2. Aspirin 81 mg daily. 3. Requip 6 mg q.p.m. 4. Prilosec 20 mg daily. 5. Metoprolol XL 50 mg daily. 6. Prinivil 5 mg daily. 7. Neurontin 300 mg 3 times a day. 8. Flonase nasal spray 2 sprays both nostrils daily. 9. Lipitor 80 mg daily. LABORATORY DATA: On the day prior to discharge, include: On 11/14/17, white blood cell count 9.5, hemoglobin 10.9, hematocrit 32, platelets of 264,000. On 11/14/17, sodium 136, potassium 3.9, chloride 103, carbon dioxide 26, BUN 17, creatinine 0.68. Patient's hemoglobin A1c was 7.7. The patient's troponin peaked at 14.7 on 11/12/17. Lipid profile which showed triglycerides of 156, total cholesterol 162, LDL 103, HDL 28. TSH was noted to be 2.12 at admission. CONSULTATIONS DURING THE HOSPITAL STAY: 1. Dr. Lucero from Cardiology. 2. Dr. Matson from Interventional Cardiology. PROCEDURES PERFORMED: Include a cardiac catheterization on 11/12/17. The patient had 2 stents placed into RCA. Cardiac catheterization report, conclusion: 1. Three-vessel disease with very distal apical nonobstructive LAD disease. Intermediate circumflex OM disease and RCA occlusion with extremely small distal RCA non-amenable for revascularization. The proximal RCA was revascularized successfully with oversized stent extending to RCA continuation. 2. LV systolic dysfunction with reduced LVEF, estimated EF of 45%. 3. Transthoracic echocardiogram obtained on 11/13/17, impression: "Mild concentric left ventricular hypertrophy observed. Severe hypokinesis and akinesis of the half of the inferior wall at the base of the posterior wall. The estimated ejection fraction is 45% to 50%. The right ventricle was mildly dilated. The right ventricular global systolic function is mildly to moderately reduced. Biatrial enlargement. The aortic valve leaflets are markedly thickened with good function. There is [id number] mitral regurgitation with multiple jets. There is mild tricuspid regurgitation. The right ventricular systolic pressure is estimated at 31 mmHg at minimum, probably underestimated. No prior echo to compare." The patient's CT angiogram of the chest obtained on admission showed negative for pulmonary embolism, mild cardiomegaly, mild dependent atelectasis. HOSPITAL COURSE: Benita Guerrero is a 57-year-old female with history of COPD and smoking who presented to the hospital complaining of chest pain. The patient was originally consulted by Dr. Lucero and then was noted have EKG changes. Dr. Matson from Interventional Cardiology took the patient to cardiac catheterization lab on 11/12/17 and 2 stents into the RCA were placed. The patient was noted to have otherwise significant coronary artery disease as mentioned above. Post cardiac catheterization, she did very well. She had an episode of chest pain with negative further workup that resolved spontaneously. She had some shortness of breath noted when using Brilinta that also resolved by the time of discharge. She was noted to have hemoglobin A1c of 7.7 and she was aware of diabetic ketoacidosis, but she did not adhere to a diabetic diet prior to her hospital stay. The patient was educated about diabetic and cardiac diet. She stated that she quit smoking the moment she entered the hospital and she is not planning to restart. A transthoracic echocardiogram showed mildly lower EF of 45% with hypokinesis of the inferior and posterior wall likely due to the stunning of the myocardium. By the time of discharge, she ambulated down the hallways without any symptoms of shortness of breath or chest pain. At discharge, the patient was recommended to follow up with her primary care provider in approximately 4 to 7 days. The patient is also recommended to follow up with Dr. Matson on 11/21/17 , at 1 p.m. for followup after cardiac catheterization. DIET AT DISCHARGE: Cardiac and diabetic. Further exercise and ambulatory restrictions were included in the post cardiac catheterization report at discharge. PHYSICAL EXAMINATION AT DISCHARGE: Vital Signs: Blood pressure of 119/66, heart rate of 77 and regular, respiratory rate 16, oxygen saturation 97% on room air, temperature 97.6. General: The patient is a very pleasant 57-year- old female who is in no acute distress, alert, awake, oriented x3. HEENT: Head atraumatic, normocephalic. Eyes: Pupils are equal, reactive to light and accommodation. Oropharynx clear. Mucosa moist. Neck: Supple. No JVD, no bruits bilaterally. Cardiovascular: Regular rate and rhythm. No murmur. Respiratory: Clear to auscultation bilaterally. Abdomen: Soft, nontender. Bowel sounds are present in all 4 quadrants. Extremities: No edema. Pulses + 2 bilaterally. No clubbing or cyanosis. Neuro evaluation: Speech is clear. Cranial nerves II through XII are grossly intact. Motor strength is 5/5 bilaterally. Please note that this is a short summary of the patient's hospitalization. Please refer to further medical records for details. TIME SPENT: Approximately 45 minutes was spent on the patient's discharge. [id number] #: [id number] MTDD
== END 2017-11-16 13:00 | disposition home or self-care (01) | DRG 174 ==
LOC: ED 22:54 → ICU 11-12 02:32 → MEDTELE 11-14 12:25
PROVIDERS: ADMIT Hospitalist; ATTEND Internal Medicine
PROC: 4A023N7 Measurement of Cardiac Sampling and Pressure, Left Heart, Percutaneous Approach (ICD-10-PCS; 2017-11-12)
PROC: B2151ZZ Fluoroscopy of Left Heart using Low Osmolar Contrast (ICD-10-PCS; 2017-11-12)
PROC: B2111ZZ Fluoroscopy of Multiple Coronary Arteries using Low Osmolar Contrast (ICD-10-PCS; 2017-11-12)
PROC: 3E073PZ Introduction of Platelet Inhibitor into Coronary Artery, Percutaneous Approach (ICD-10-PCS; 2017-11-12)
PROC: 5A09357 Assistance with Respiratory Ventilation, Less than 24 Consecutive Hours, Continuous Positive Airway Pressure (ICD-10-PCS; 2017-11-12)
PROC: 027035Z Dilation of Coronary Artery, One Artery with Two Drug-eluting Intraluminal Devices, Percutaneous Approach (ICD-10-PCS; principal; 2017-11-12 11:00)
DX: I21.4 Non-ST elevation (NSTEMI) myocardial infarction (principal); J96.20 Acute and chronic respiratory failure, unspecified whether with hypoxia or hypercapnia; J98.11 Atelectasis; I50.20 Unspecified systolic (congestive) heart failure; G47.33 Obstructive sleep apnea (adult) (pediatric); K21.9 Gastro-esophageal reflux disease without esophagitis; G25.81 Restless legs syndrome; F17.210 Nicotine dependence, cigarettes, uncomplicated; E78.5 Hyperlipidemia, unspecified; E66.9 Obesity, unspecified; K58.9 Irritable bowel syndrome, unspecified; M16.0 Bilateral primary osteoarthritis of hip; M19.012 Primary osteoarthritis, left shoulder; M19.011 Primary osteoarthritis, right shoulder; M47.9 Spondylosis, unspecified; F32.9 Major depressive disorder, single episode, unspecified; F41.9 Anxiety disorder, unspecified; E11.9 Type 2 diabetes mellitus without complications; I95.1 Orthostatic hypotension; I25.119 Atherosclerotic heart disease of native coronary artery with unspecified angina pectoris; G89.29 Other chronic pain; J44.9 Chronic obstructive pulmonary disease, unspecified; I08.1 Rheumatic disorders of both mitral and tricuspid valves; Z91.018 Allergy to other foods; Z88.5 Allergy status to narcotic agent; Z88.6 Allergy status to analgesic agent; Z98.51 Tubal ligation status; Z82.49 Family history of ischemic heart disease and other diseases of the circulatory system; Z68.36 Body mass index [BMI] 36.0-36.9, adult; Z98.1 Arthrodesis status; Z83.3 Family history of diabetes mellitus; Z79.02 Long term (current) use of antithrombotics/antiplatelets; Z79.82 Long term (current) use of aspirin
CPT/HCPCS: 36415; 71045; 71275; 80048; 80053; 80061; 82330; 82533; 82550; 82553; 82565; 82803; 83036; 83605; 83880; 84443; 84484; 84520; 85025; 85379; 85610; 85652; 85730; 86140; 87641; 93005; 93306; 93458; 94640; 94660; 94760; 99156; 99157; 99285; 99406; A9270-GY; C1725; C1769; C1876; C1887; C9600-RC; J0780; J1170; J1327; J1644; J1940; J2250; J2270; J2405; J3010; J3490; Q9967

== ENCOUNTER 2018-03-30 19:56 | Emergency (ER) | payer OTHER ==
[2018-03-30 20:11] VITALS: BP 140/82
--- NOTE | 2018-03-30 20:13 | UC ---
Ear Complaint HPI - HPI Summary HPI Summary: left ear pain for 2 days--left side of face painful as well - History of Current Complaint Chief Complaint: UCEar Stated Complaint: FACIAL PAIN Time Seen by Provider: 03/30/18 20:10 Hx Obtained From: Patient Hx Last Menstrual Period: early 40's ?: No Onset/Duration: Sudden Onset Pain Intensity: 5 Pain Scale Used: 0-10 Numeric Aggravating Factors: Nothing Alleviating Factors: Nothing Associated Signs/Symptoms: Positive: Hearing Loss, Swelling @ - left ear - Allergies/Home Medications Allergies/Adverse Reactions: Allergies Allergy/AdvReac Type Severity Reaction Status Date / Time codeine Allergy Hallucinati Verified 03/30/18 20:11 ons hydrocodone [From Vicodin] Allergy Hallucinati Verified 03/30/18 20:11 ons BLUEBERRIES Allergy RASH, EDEMA Uncoded 03/30/18 20:11 WINTER PEARS Allergy RASH, EDEMA Uncoded 03/30/18 20:11 Home Medications: Home Medications Clopidogrel TAB* [Plavix TAB*] 75 mg PO DAILY 03/30/18 [History Confirmed ] HYDROcodone/ACETAMIN 5-325 MG* [Clever 5-325 TAB*] 1 tab PO PRN 03/30/18 [History ] Metoprolol Tartrate TAB* [Lopressor TAB*] 25 mg PO DAILY 03/30/18 [History Confirmed 03/30/18] Varenicline (NF) [Chantix 1 MG TAB (NF)] 1 mg PO BID 03/30/18 [History Confirmed 03/30/18] PMH/Surg Hx/FS Hx/Imm Hx Previously Healthy: No Endocrine History: Dyslipidemia Cardiovascular History: Cardiac Disease, Hypertension - Surgical History Surgical History: Yes Surgery Procedure, Year, and Place: tube insert into lt ear 2012 for drainage, 1975 jaw surgury [facility] , c-spine fussion 1998, [facility], right rotator cuff, 1994, [facility], left rotator cuff. c sections - Family History Known Family History: Positive: Hypertension, Diabetes - Social History Occupation: Unemployed Lives: With Family Alcohol Use: None Substance Use Type: None Smoking Status (MU): Current Every Day Smoker Type: Cigarettes Amount Used/How Often: 1/2 PPD Have You Smoked in the Last Year: Yes Household Exposure Type: Cigarettes - Immunization History Most Recent Influenza Vaccination: 04/2017 Most Recent Pneumonia Vaccination: N/A Review of Systems Constitutional: Negative Skin: Negative Eyes: Negative ENT: Ear Ache - left Respiratory: Negative Cardiovascular: Negative Gastrointestinal: Negative Genitourinary: Negative Motor: Negative Neurovascular: Negative Musculoskeletal: Negative Neurological: Negative Psychological: Negative Is Patient Immunocompromised?: No All Other Systems Reviewed And Are Negative: Yes Physical Exam Triage Information Reviewed: Yes Appearance: Well-Appearing, No Pain Distress, Well-Nourished Vital Signs: Initial Vital Signs Temp 98.4 F 03/30/18 20:03 Pulse 80 03/30/18 20:03 Resp 16 03/30/18 20:03 BP 140/82 03/30/18 20:03 Pulse Ox 99 03/30/18 20:03 Vital Signs Reviewed: Yes Eye Exam: Normal Eyes: Positive: Conjunctiva Clear ENT Exam: Normal ENT: Positive: Normal ENT inspection, Hearing grossly normal, Pharynx normal, Nasal congestion, TMs normal - right, TM red - left, Uvula midline, Other - left tm is open, pinna and tragus tender to touch---no rash noted. Negative: Trismus, Muffled voice, Hoarse voice, Dental tenderness, Sinus tenderness Dental Exam: Normal Neck exam: Normal Neck: Positive: Supple, Nontender Respiratory Exam: Normal Respiratory: Positive: Chest non-tender, No respiratory distress, No accessory muscle use Cardiovascular Exam: Normal Cardiovascular: Positive: RRR, Pulses Normal, Brisk Capillary Refill Musculoskeletal Exam: Normal Musculoskeletal: Positive: Strength Intact, ROM Intact, No Edema Neurological Exam: Normal Neurological: Positive: Alert Psychological Exam: Normal Skin Exam: Normal Ear Complaint Course/Dx - Course Course Of Treatment: augmentin, patient states she can take vicoden (she did not realize that and hydrocodone were the samething), warm compress follow with pcp in 1 week for bp re-check or sooner if pain worsens or fails to improve - Differential Dx/Diagnosis Provider Diagnoses: Left ear infection, elevated blood pressure in poor control , nicotine dependent Discharge - Sign-Out/Discharge Documenting (check all that apply): Patient Departure - Discharge Plan Condition: Stable Disposition: HOME Prescriptions: Amoxicillin/Clavulanate TAB* [Augmentin TAB 875*] 875 mg PO BID #19 tab Hydrocodone/Acetaminophen [Hydrocodone-Acetamin 5-325 mg] 1 each PO QID PRN #6 tablet MDD 4 PRN Reason: Pain Patient Education Materials: Ear Infection (ED), Hypertension (ED) Referrals: Leobardo Bernardo MD [Primary Care Provider] - 1 Week - Billing Disposition and Condition Condition: STABLE Disposition: Home
[2018-03-30] MEDS ORDERED: HYDROcodone/ACETAMIN 5-325 MG* 1 TAB PO ONE (20:24)
[2018-03-30] MEDS ORDERED: Amoxicillin/Clavulanate TAB* 875 MG PO ONE (20:28)
== END 2018-03-30 20:47 | disposition home or self-care (01) ==
LOC: UCEAST 19:56
DX: H66.92 Otitis media, unspecified, left ear (principal); R03.0 Elevated blood-pressure reading, without diagnosis of hypertension; I10 Essential (primary) hypertension; Z88.5 Allergy status to narcotic agent; Z91.018 Allergy to other foods; Z82.49 Family history of ischemic heart disease and other diseases of the circulatory system; Z83.3 Family history of diabetes mellitus; F17.210 Nicotine dependence, cigarettes, uncomplicated
CPT/HCPCS: 99213; A9270-GY; G0463

== ENCOUNTER 2018-05-25 13:53 | Emergency (ER) | payer OTHER ==
--- OUTSIDE RECORDS SUMMARY | 2018-05-25 13:59 | XMS REPORT ---
:1960 External Reference #:[id number] Author Organization [facility] Address [address] [place] [address] Phone [phone] Care Team Providers Name Role Phone Leobardo Beranrdo MD Primary Care Physician Unavailable Payers Type Date Identification Numbers Payment Provider Subscriber Commercial Effective: Policy Number: Rafael Paulino 2017 [id number] Yolanda PayID: [id number] [address] [place] [address] [facility] Expires: 2017 Policy Number: Medicaid Jamaal Guerrero [id number] Group Name: 1 1 [address] PayID: [id number] [place] [address] Problems Date Description Provider Status Onset: 12/02/2014 Lumbar sprain Chester Mcgarry M.D. Active Onset: 12/02/2014 Meralgia paresthetica Chester Mcgarry M.D. Active Onset: 11/12/2016 Degeneration of lumbar Jose Vences M.D. 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 Active Onset: 05/05/2018 Old myocardial infarction Vintia Lucero M.D. Active Onset: 01/10/2018 Multi vessel coronary artery Vinita Lucero M.D. Active disease Onset: 01/10/2018 Chronic ischemic heart disease Vinita Lucero M.D. Active Onset: 01/10/2018 Pure hypercholesterolemia Vinita Lucero M.D. Active Onset: 01/10/2018 Essential hypertension Vinita Lucero M.D. Active Onset: 11/21/2017 Acute subendocardial infarction Iliana Matson MD, Active [facility], [facility] Family History Date Family Member(s) Problem(s) Comments General Heart Disease General Coronary Artery Disease (CAD) General Diabetes Type II Father Coronary Artery Disease (CAD) Father Heart Disease Father Diabetes Type II Mother Coronary Artery Disease (CAD) Mother Heart Disease Social History Type Date Description Comments Lives With Son Occupation Motor vehicle office Occupation [employer] Cigarette Use Light tobacco smoker (10 or fewer cigarettes/day) Cigarette Use current cigarette smoker ETOH Use Denies alcohol use Recreational Drug Use Denies Drug Use Smoking Light tobacco smoker (10 or 5-10 cigarettes a day, pt fewer cigarettes/day) taking chantix Daily Caffeine Consumes on average 5-10 cups of regular coffee per day Exercise Type/Frequency Exercises regularly walking 10-15 minutes daily, stationary bike 10-15 minutes General Hx Text Patient is right handed. Allergies, Adverse Reactions, Alerts Date Description Reaction Status Severity Comments 12/02/2014 Codeine other active hallucinations and sweating 09/07/2017 Blueberries active hives and swelling 09/07/2017 Winter Pears active hives and swelling 10/30/2017 Vicodin active Medications Medication Date Status Form Strength Qnty SIG Indications Ordering Provider Nitroglycerin 05/23 Active Tablets 0.4mg 30tab 1 tablet I25.10 Caroline Sub s sublISA Marinelli every five minutes as needed for chest pain. may take up to 3 doses. Amoxicillin/Clav 05/16 Active Tablets 875-125mg take 1 Unknown ulanate tablet by Potassium mouth twice a day for 10 days Ropinirole HCL 05/08 Active Tablets 4mg 60tab take 2 G60.3 Christopher s pills 3 DilipAlva hours before bedtime Amlodipine 05/05 Active Tablets 2.5mg 90tab 1 by I25.10 [place] Besylate s mouth Kaufman, every day M.D. Metoprolol 11/21 Active Tablets 25mg 90tab 1 by I21.4 [place] Tartrate s mouth Kaufman, daily M.D. Clopidogrel 11/21 Active Tablets 75mg 90tab 1 by I21.4 [place] Bisulfate s mouth Nic, every day M.D. Aspirin 81 Low 11/16 Active Chewtabs 81mg 1 by Iliana Rivera carlos Matson MD, every day [facility] Prinivil 11/16 Active Tablets 5mg 90tab take 1 [place] /2017 s tablet by Kaufman, mouth at M.D. bedtime Atorvastatin 11/16 Active Tablets 80mg 90tab 1 by [place] Calcium s mouth Kaufman, every day M.D. Gabapentin 09/07 Active Capsules 300mg 270ca 3 by G60.3 olimpia Cherry M.D. three times a day Hydrocodone Active Tablets 5-300mg 1 tab by Unknown Bitartrate/Aceta mouth minophen every 4 hours as needed pain Chantix Active Tablets 1mg twice Unknown / daily Pepcid Active Tablets 20mg one tab Unknown /0000 every night Baclofen Active Tablets 10mg take 1/2 Unknown /0000 to 1 tablet by mouth three times a day maximum daily dose of Prednisone Active Tablets 10mg take 2 Unknown /0000 tablets by mouth daily Brilinta 11/16 Hx Tablets 90mg 180ta 1 tab by Iliana Gomez anshul Matson MD, - twice a [facility] Toprol XL 11/16 Hx Tablets ER 50mg 90tab 1 by Iliana Gomez 24HR lamont Matson MD, - every day [facility] 01/01 Gabapentin 07/20 Hx Capsules 300mg 180ca 2 by G60.3 [place] olimpia Cherry M.D. - three 09/07 times a day Ultracet 02/06 Hx Tablets 37.5-325m 30tab 1 - 2 by 727.03 Christy /2015 cristhian Rice M.D. - q4-6hr as 02/28 pain Crestor Hx Tablets 5mg 1 by Unknown /0000 mouth - every day 02/05 Omeprazole Hx Capsules 40mg 1 by Unknown /0000 DR mouth - every day 01/01 Ropinirole HCL 00/00 Hx Tablets 2mg 2-3 tabs G60.3 Unknown /0000 daily at - night 05/08 Tramadol HCL 00/00 Hx Tablets 50mg take 1-2 Unknown /0000 tablets - by mouth 02/05 every hours if needed Furosemide 00/00 Hx 20mg Unknown /0000 - 02/28 Cephalexin 00/ Hx 500mg Unknown /0000 - 11/12 Meloxicam 00/ Hx Tablets 15mg take 1 Unknown /0000 tablet by - mouth 11/20 daily Tramadol HCL 00/ Hx Tablets 50mg Take 1 To Unknown /0000 2 Tablets - By Mouth 07/15 Every Hours as Needed Oxycodone-Acetam Hx Tablets 5-325mg Take 2 Unknown inophen /0000 Tablets Every 6 Hours as Needed For Pain, MDD Is 8 Ibuprofen Hx Tablets 800mg take 1 Unknown /0000 tablet by - mouth 07/19 times a day if needed with food Gabapentin Hx Capsules 300mg take 1 Unknown /0000 capsule - by mouth 07/15 times a day Chantix Hx Tablets 1mg as Unknown Continuing Month /0000 directed Ean - 08/15 Flovent HFA Hx Aerosol 220mcg/Ac as Unknown /0000 t directed - 01/01 Flonase Allergy Hx Suspension 50mcg/Act spray 1 Unknown Relief /0000 spray in - each 07/19 nostr twice daily Prednisone Hx Tablets 10mg 30tab 1 tabs by Unknown /0000 s mouth - every day 08/15 Gabapentin Hx Capsules 300mg 90cap 1 by G60.3 Unknown /0000 s mouth - three 07/20 times day Requip XL 00 Hx Tablets ER 6mg 1 tab by Unknown /0000 24HR mouth 30 - minutes 01/01 bedtime Prilosec OTC [address] 20mg 1 by Unknown /0000 mouth - every day 11/20 Fluticasone 00 Hx Suspension 50mcg/Act 2 sprays Unknown Propionate /0000 each - nostril 01/01 qd. Lisinopril Hx Tablets 5mg once Unknown /0000 daily - 01/01 Cyclobenzaprine 00/00 Hx Tablets 5mg take one Unknown HCL /0000 tablet by - mouth 05/22 every hours prn. may take a second tablet if first not effetive. Medications Administered in Office Medication Date Status Form Strength Qnty SIG Indications Ordering Provider Technetium TC Administered Injection José Miugel Bennett [id number] Veronica Kirkland M.D., [facility], Per Unit Dose FASNC Up To 40 Millicuries Vital Signs Date Vital Result Comment 05/23/2018 Height 63 inches 5'3" Weight 195.00 lb with shoes Heart Rate 62 /min BP Systolic Sitting 110 mmHg Lue lg cuff BP Diastolic Sitting 60 mmHg Lue lg cuff BP Systolic Standing 110 mmHg Lue lg cuff BP Diastolic Standing 64 mmHg Lue lg cuff Respiratory Rate 18 /min BMI (Body Mass Index) 34.5 kg/m2 Ejection Fraction 55-60% date 01/18/18 ECHO 05/08/2018 Height 63 inches 5'3" Weight 197.31 lb Heart Rate 92 /min BP Systolic 122 mmHg BP Diastolic 60 mmHg Respiratory Rate 16 /min BMI (Body Mass Index) 34.9 kg/m2 05/05/2018 Height 63 inches 5'3" Weight 199.00 lb w/ shoes Heart Rate 70 /min BP Systolic Sitting 142 mmHg lue rg cuff BP Diastolic Sitting 70 mmHg lue rg cuff BP Systolic Standing 138 mmHg lue rg cuff BP Diastolic Standing 70 mmHg lue rg cuff Respiratory Rate 18 /min BMI (Body Mass Index) 35.2 kg/m2 Ejection Fraction 55-60% echo 01/18/18 02/09/2018 Height 63 inches 5'3" Weight 196.00 lb with shoes Heart Rate 82 /min BP Systolic Sitting 132 mmHg Sasha reg cuff BP Diastolic Sitting 70 mmHg Sasha reg cuff BP Systolic Standing 132 mmHg Sasha reg cuff BP Diastolic Standing 70 mmHg Sasha reg cuff Respiratory Rate 18 /min BMI (Body Mass Index) 34.7 kg/m2 01/10/2018 Height 63 inches 5'3" Weight 198.00 lb per pt Heart Rate 72 /min reg BP Systolic Sitting 140 mmHg Rue, lg cuff BP Diastolic Sitting 74 mmHg Rue, lg cuff BP Systolic Standing 136 mmHg Rue BP Diastolic Standing 70 mmHg Rue Respiratory Rate 18 /min BMI (Body Mass Index) 35.1 kg/m2 Ejection Fraction 45-50% as of 11/2017 echo 01/02/2018 Height 63 inches 5'3" Weight 195.31 lb Heart Rate 88 /min BP Systolic Sitting 118 mmHg BP Diastolic Sitting 76 mmHg Respiratory Rate 16 /min BMI (Body Mass Index) 34.6 kg/m2 11/21/2017 Height 63 inches 5'3" Weight 204.00 lb w/ shoes Heart Rate 80 /min BP Systolic Sitting 118 mmHg lue large cuff BP Diastolic Sitting 58 mmHg lue large cuff BP Systolic Standing 110 mmHg lue large cuff BP Diastolic Standing 56 mmHg lue large cuff Respiratory Rate 18 /min BMI (Body Mass Index) 36.1 kg/m2 Ejection Fraction 45-50% echo 11/13/17 10/31/2017 Height 63 inches 5'3" Weight 207.12 [...] Test Date Test Result H/L Range Note Order 02/09/2018 EKG <pending> Comp Metabolic Panel 01/31/2018 Sodium 141 mmol/L 135-145 Potassium 4.3 mmol/L 3.5-5.0 Chloride 107 mmol/L 101-111 Co2 Carbon Dioxide 28 mmol/L 22-32 Anion Gap 6 mmol/L 2-11 Glucose 131 mg/dL High 70-100 Blood Urea Nitrogen 14 mg/dL 6-24 Creatinine 0.65 mg/dL 0.51-0.95 BUN/Creatinine Ratio 21.5 High 8-20 Calcium 9.3 mg/dL 8.6-10.3 Total Protein 6.4 g/dL 6.4-8.9 Albumin 4.1 g/dL 3.2-5.2 Globulin 2.3 g/dL 2-4 Albumin/Globulin Ratio 1.8 1-3 Total Bilirubin 0.30 mg/dL 0.2-1.0 Alkaline Phosphatase 146 U/L High 34-104 Alt 27 U/L 7-52 Ast 14 U/L 13-39 Egfr Non- 94.0 >60 Egfr 120.8 >60 1 Lipid Profile (Trig/Chol/HDL) 01/31/2018 Triglycerides 98 mg/dL 2 Cholesterol 108 mg/dL 3 HDL Cholesterol 26.5 mg/dL 4 LDL Cholesterol 62 mg/dL 5 Laboratory test finding 01/31/2018 Creatine Kinase(CK) 77 U/L 10-223 Lipid Panel - [facility] 01/10/2018 Creatine Kinase(CK) <pending> Laboratory test finding 10/10/2017 Vitamin B12 341 pg/mL 180-914 6 Erythrocyte Sed Rate 29 mm/Hr 0-30 C Reactive Protein 2.27 mg/L < 5.00 7 Protein Electrophoresis 10/10/2017 Total Protein(Pep) 7.6 g/dL 6.3 - 7.9 Albumin 3.8 g/dL 3.4-4.7 Alpha-1 Globulin 0.3 g/dL 0.1-0.3 Alpha-2 Globulin 1.1 g/dL 0.6-1.0 Beta Globulin 1.2 g/dL 0.7-1.2 Gamma Globulin 1.1 g/dL 0.6-1.6 Albumin/Globulin Ratio 1.02 Impression See Comment 8 Anca Panel For Vasculitis 10/10/2017 Myeloperoxidase AB < 0.2 U 9 Proteinase 3 AB < 0.2 U 10 Heavy Metal Blool 10/10/2017 Arsenic <1 ng/mL 0-12 11 Lead <1.0 g/dL 0.0-4.9 12 Mercury <1 ng/mL 0-9 13 Cadmium 3.6 ng/mL 0.0-4.[address] [place] [address] [facility] [place], [place] Guardian First Name JAMAAL Guardian Last Name YOLANDA Venous/Capillary Heavy Metals Venous Patient Race WHITE Submitting Laboratory 16 Laboratory test finding 02/07/2015 Point of Care Glucose 97 mg/dL 74-106 17 1 Because ethnic data is not always readily available, this report includes an eGFR for both -Americans and non- Americans. The National Kidney Disease Education Program (NKDEP) does not endorse the use of the MDRD equation for patients that are not between the ages of 18 and 70, are , have extremes of body size, muscle mass, or nutritional status, or are non- or non-. According to the National Kidney Foundation, irrespective of diagnosis, the stage of the disease is based on the level of kidney function: Stage Description GFR(mL/min/1.73 m(2)) 1 Kidney damage with normal or decreased GFR 90 2 Kidney damage with mild decrease in GFR 60-89 3 Moderate decrease in GFR 30-59 4 Severe decrease in GFR 15-29 5 Kidney failure <15 (or dialysis) 2 Desirable: <150 Borderline High: 150-199 High: 200-499 Very High: >500 3 Desirable: <200 Borderline High: 200-239 High: >239 4 Low: <40 Desirable: 40-60 High: >60 5 Desirable: <100 Near Optimal: 100-129 Borderline High: 130-159 High: 160-189 Very High: >189 6 Normal Range 180 to 914 Indeterminate Range 145 to 180 Deficient Range <145 7 Acute inflammation: >10.00 8 RESULT: No apparent monoclonal protein on serum electrophoresis. Test Performed by: [facility] - [address] [address] 9 REFERENCE VALUE <0.4 (Negative) 10 REFERENCE VALUE <0.4 (Negative) Test Performed by: [facility] - [address] [address] 11 ADDITIONAL INFORMATION This test was developed and its performance characteristics determined by [facility] in a manner consistent with CLIA requirements. This test has not been cleared or approved by the U.S. Food and Drug Administration. 12 ADDITIONAL INFORMATION Testing performed by Inductively Coupled Plasma-Mass Spectrometry (ICP-MS). This test was developed and its performance characteristics determined by [facility] in a manner consistent with CLIA requirements. This test has not been cleared or approved by the U.S. Food and Drug Administration. 13 ADDITIONAL INFORMATION This test was developed and its performance characteristics determined by [facility] in a manner consistent with CLIA requirements. This test has not been cleared or approved by the U.S. Food and Drug Administration. 14 ADDITIONAL INFORMATION This test was developed and its performance characteristics determined by [facility] in a manner consistent with CLIA requirements. This test has not been cleared or approved by the U.S. Food and Drug Administration. [address] 16 Test Performed by: [facility] - [facility] [address] [place], [place] [id number] 17 [place] Operator: [id number] WILLIAM FLORIAN Procedures Date CPT Code Description Status 05/05/2018 36703 EKG Tracing & Interpretation Completed 02/21/2018 25649 Stress Test Completed 02/21/2018 17130 Myocardial Perfusion Imaging Tomographic (Spect) Completed Multiple Studies 02/09/2018 90907 EKG Tracing & Interpretation Completed 01/18/2018 49339 ECHO Transthoracic, Real-Time 2D With Doppler And Color Completed Flow 01/18/2018 63769 ECHO Transthoracic, Real-Time 2D With Doppler And Color Completed Flow 11/21/2017 82993 EKG Tracing & Interpretation Completed 11/15/2017 18987 EKG, Interpretation Only Completed 11/14/2017 80691 EKG, Interpretation Only Completed 11/13/2017 63986 ECHO Transthorasic Realtime 2D W Doppler & Color Flow Completed Hosp 11/13/2017 97804 EKG, Interpretation Only Completed 11/12/2017 33245 Left Heart Cath. Incl S/I Coronaries, Angio S/I V Gram Completed If Done 11/12/2017 83278 Revascularization Acute Total/Subtotal Occlusion Completed 06/03/2017 03942 Laparoscopy, Surgical, Appendectomy Completed 02/07/2015 15418 Trigger Finger Release Incision / Tendon Sheath Completed Incision Encounters Type Date Location Provider CPT E/M Dx Office Visit 05/08/2018 [facility] Bigg Cherry M.D. 24774 G60.3 1:30p [facility] [place] G25.81 M54.42 Office Visit 05/05/2018 9:00a [facility] [place] Lucero M.D. 57108 I25.10 Manufacturing Quality Engineer AT [facility] I25.2 G47.33 Z72.0 Office Visit 02/09/2018 10:30a [facility] Tash Aj, 99803 I25.5 Manufacturing Quality Engineer N.P. I25.10 R53.1 Z72.0 I10 E78.00 E11.8 Office Visit 01/10/2018 9:45a [facility] [place] Lucero M.D. 60026 I25.10 [place] R53.1 Z72.0 I10 E78.00 E11.8 I25.5 Office Visit 01/02/2018 11:00a [facility] Gedesiraelaron Cherry, 20144 G60.3 [facility] [place] G57.11 G25.81 Office Visit 11/21/2017 1:20p [facility] Iliana Matson, 35651 I21.4 Manufacturing Quality Engineer AT [facility] NBA GORDON, [facility] Z72.0 Office Visit 11/16/2017 2:34p [facility] Iliana Matson, 04109 I21.4 Manufacturing Quality Engineer AT [facility] NBA GORDON, [facility] Office Visit 11/16/2017 3:02p [facility] Rizwana Beard, 10900 I21.4 Hospitalists [place] E78.00 G47.33 E11.9 Office Visit 11/15/2017 2:33p [facility] Iliana Matson, 11953 I21.4 Manufacturing Quality Engineer AT [facility] NBA GORDON, [facility] Office Visit 11/15/2017 2:57p [facility] Rizwana Beard, 42555 I21.4 Hospitalists [place] E78.00 G47.33 E11.9 Office Visit 11/14/2017 2:32p [facility] Iliana Matson, 83323 I21.4 Manufacturing Quality Engineer AT [facility] NBA GORDON, [facility] Office Visit 11/14/2017 2:56p [facility] Rizwana Beard, 47210 I21.4 Hospitalists [place] E78.00 G47.33 E11.9 Office Visit 11/13/2017 2:40p [facility] Lucero M.D. 96602 I21.4 [place] I25.10 Z72.0 Office Visit 11/13/2017 2:55p [facility] Michaela Nguyen, 48985 I21.4 Hospitalists E78.00 G47.33 E11.9 Office Visit 11/13/2017 2:29p [facility] Tejastami CharlyElena Matson, 25737 I21.4 Manufacturing Quality Engineer AT [facility] , NBA, FSCAI E11.9 I50.22 I95.1 Office Visit 11/12/2017 2:55p [facility] [place], [address] I21.4 Assoc,pc Hospitalists [place] E78.00 G47.33 K21.9 Office Visit 11/12/2017 2:32p [facility] Luc[facility] M.D. 25257 I20.9 [facility] R94.31 R79.89 E66.9 E78.5 Z82.49 Z72.0 Office Visit 10/31/2017 10:15a [facility] Bigg Cherry, 23628 G60.3 [facility] [place] G57.11 G25.81 Office Visit 09/07/2017 4:00p [place] [place], 34142 G60.3 [facility] [place] G57.10 Office Visit 07/20/2017 1:00p [place] [place], 22739 G60.3 [facility] [place] Cervantes.Romina G57.10 G25.81 Office Visit 06/03/2017 7:00a [facility] [place], 86794 K35.80 [place] Cervantes.Romina Office Visit 11/12/2016 9:30a [facility] Kaylee Stevens PA-C 63410 M51.36 Of [facility] Office Visit 02/06/2015 8:30a [facility] Christy Rice, 62373 727.03 [place] Office Visit 12/02/2014 2:20p [facility] Chester Mcgarry, 37500 847.2 [facility] [place] 355.1 Office Visit 01/06/2010 9:00a [facility] Chester Mcgarry, 08106 721.1 [facility] [place] Office Visit 02/26/2008 10:30a [facility] Chester Mcgarry, 44062 721.1 [facility] [place] Plan of Care Future Appointment(s):07/31/2018 1:45 pm - Bigg Cherry M.D. at [facility] Of [facility]05/23/2018 - Caroline Galeano, NPI25.10 Athscl heart disease of [place] coronary artery w/o ang pctrsNew Medication:Nitroglycerin 0.4 mgFollow up:f/u in October 2018 with either Caroline Galeano CAR BUILDER- or Dr. Leonardo78.5 Hyperlipidemia, [id number] Essential (primary) [id number] Tobacco use
--- OUTSIDE RECORDS SUMMARY | 2018-05-25 13:59 | XMS REPORT ---
:1960 External Reference #:[id number] Author Organization [facility] Address [address] [facility] [place] [address] Phone [phone] Care Team Providers Name Role Phone Leobardo Bernardo MD Primary Care Physician Unavailable Payers Type Date Identification Numbers Payment Provider Subscriber Commercial Effective: Policy Number: Rafael Paulino 2017 [id number] Yolanda PayID: [id number] [address] [place] [address] [facility] Expires: 2017 Policy Number: Medicaid Jamaal Guerrero [id number] Group Name: 1 1 [address] PayID: [id number] [place] [address] Problems Date Description Provider Status Onset: 12/02/2014 Lumbar sprain Chester Mcgarry M.D. Active Onset: 12/02/2014 Meralgia paresthetica Chester Mcgarry M.D. Active Onset: 11/12/2016 Degeneration of lumbar Jose Vences M.D. 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 Active Onset: 05/05/2018 Old myocardial infarction Vinita Lucero M.D. Active Onset: 01/10/2018 Multi vessel coronary artery Vinita Lucero M.D. Active disease Onset: 01/10/2018 Chronic ischemic heart disease Vintia Lucero M.D. Active Onset: 01/10/2018 Pure hypercholesterolemia Vinita Lucero M.D. Active Onset: 01/10/2018 Essential hypertension Vinita Lucero M.D. Active Onset: 11/21/2017 Acute subendocardial infarction Iliana Matson MD, Active [facility] Family History Date Family Member(s) Problem(s) Comments General Heart Disease General Coronary Artery Disease (CAD) General Diabetes Type II Father Coronary Artery Disease (CAD) Father Heart Disease Father Diabetes Type II Mother Coronary Artery Disease (CAD) Mother Heart Disease Social History Type Date Description Comments Lives With Son Occupation Motor vehicle office Occupation [employer] Cigarette Use Light tobacco smoker (10 or [...] Form Strength Qnty SIG Indications Ordering Provider Ropinirole HCL 05/08 Active Tablets 4mg 60tab take 2 G60.3 Christoph s pills 3 Alva Cherry hours before bedtime Amlodipine 05/05 Active Tablets 2.5mg 90tab 1 by I25.10 Vinita Besylate /2017 s mouth Nic, every day M.D. Metoprolol 11/21 Active Tablets 25mg 90tab 1 by I21.4 Vinita Tartrate /2017 s mouth Nic, daily M.D. Clopidogrel 11/21 Active Tablets 75mg 90tab 1 by I21.4 Iliana Gomez Bisulfate /2017 s carlos Matson MD, every day [facility], [facility] Aspirin 81 Low 11/16 Active Chewtabs 81mg 1 by Iliana Gomez Dose /2018 mouth MD Dano, every day [facility] Prinivil 11/16 Active Tablets 5mg 90tab take 1 Vinita s tablet by Nic, mouth at M.D. bedtime Atorvastatin 11/16 Active Tablets 80mg 90tab 1 by Vinita s mouth [place], every day M.D. Gabapentin 09/07 Active Capsules 300mg 270ca 3 by G60.3 olimpia Cherry M.D. three times a day Hydrocodone Active Tablets 5-300mg 1 tab by Unknown Bitartrate/Aceta /0000 mouth minophen every 4 hours as needed pain Chantix Active Tablets 1mg twice Unknown /0000 daily Pepcid Active Tablets 20mg one tab Unknown /0000 every night Cyclobenzaprine Active Tablets 5mg take one Unknown HCL /0000 tablet by mouth every 8 hours prn. may take a second tablet if first not effetive. Brilinta 11/16 Hx Tablets 90mg 180ta 1 tab by Iliana Gomez anshul Matson MD, - twice a [facility], [facility] Toprol XL 11/16 Hx Tablets ER 50mg 90tab 1 by Iliana Gomez 24HR s carlos Matson MD, - every day [facility], [facility] 01/01 Gabapentin 07/20 Hx Capsules 300mg 180ca 2 by G60.3 olimpia Cherry M.D. - three 09/07 times day Ultracet 02/06 Hx Tablets 37.5-325m 30tab 1 - 2 by 727.03 g lamont Rice M.D. - q4-6hr as 02/28 pain Crestor Hx Tablets 5mg 1 by Unknown /0000 mouth - every day 02/05 Omeprazole Hx Capsules 40mg 1 by Unknown /0000 DR mouth - every day 01/01 Ropinirole HCL Hx Tablets 2mg 2-3 tabs G60.3 Unknown /0000 daily at - night 05/08 Tramadol HCL Hx Tablets 50mg take 1-2 Unknown /0000 tablets - by mouth 02/05 every hours if needed Furosemide 00/ Hx 20mg Unknown /0000 - 02/28 Cephalexin Hx 500mg Unknown /0000 - 11/12 Meloxicam Hx Tablets 15mg take 1 Unknown /0000 tablet by - mouth 11/20 daily Tramadol HCL Hx Tablets 50mg Take 1 To Unknown [...] Hx Tablets 1mg as Unknown Continuing Month / directed Ean - 08/15 Flovent HFA Hx Aerosol 220mcg/Ac as Unknown /0000 t directed - 01/01 Flonase Allergy Hx Suspension 50mcg/Act spray 1 Unknown Relief /0000 spray in - each 07/19 nostril twice daily Prednisone Hx Tablets 10mg 30tab 1 tabs by Unknown /0000 s mouth - every day 08/15 Gabapentin Hx Capsules 300mg 90cap 1 by G60.3 Unknown /0000 s mouth - three 07/20 times day Requip XL Hx Tablets ER 6mg 1 tab by Unknown /0000 24HR mouth 30 - minutes 01/01 before bedtime Prilosec OTC Hx Tablets DR 20mg 1 by Unknown /0000 mouth - every day 11/20 Fluticasone Hx Suspension 50mcg/Act 2 sprays Unknown Propionate /0000 each - nostril 01/01 qd. Lisinopril Hx Tablets 5mg once Unknown /0000 daily - 01/01 Medications Administered in Office Medication Date Status Form Strength Qnty SIG Indications Ordering Provider Technetium TC Administered Injection Veronica Healy M.D., FACC, Per Unit Dose FASNC Up To 40 Millicuries Vital Signs Date Vital Result Comment 05/08/2018 Height 63 inches 5'3" Weight 197.31 [...] Kinase(CK) 77 U/L 10-223 Lipid Panel - [facility] 01/10/2018 Creatine Kinase(CK) <pending> Laboratory test [...] Cadmium 3.6 ng/mL 0.0-4.[address] [place] [address] [place] [address] [facility] RAJENDRA Guardian First Name JAMAAL Guardian Last Name [...] protein on serum electrophoresis. Test Performed by: [facility] [address] [place] [address] 9 REFERENCE VALUE <0.4 (Negative) 10 REFERENCE VALUE <0.4 (Negative) Test Performed by: [facility] - [address] [address] 11 ADDITIONAL INFORMATION This test was developed and its performance characteristics determined by [facility] in a manner consistent with CLIA requirements. This test has not been cleared or approved by the U.S. Food and Drug Administration. 12 ADDITIONAL INFORMATION Testing performed by Inductively Coupled Plasma-Mass Spectrometry (ICP-MS). This test was developed and its performance characteristics determined by [facility] in a manner consistent with CLIA requirements. This test has not been cleared or approved by the U.S. Food and Drug Administration. 13 ADDITIONAL INFORMATION This test was developed and its performance characteristics determined by [facility] in a manner consistent with CLIA requirements. This test has not been cleared or approved by the U.S. Food and Drug Administration. 14 ADDITIONAL INFORMATION This test was developed and its performance characteristics determined by [facility] in a manner consistent with CLIA requirements. This test has not been cleared or approved by the U.S. Food and Drug Administration. [address] 16 Test Performed by: [facility] [address] [place] [address] 17 Bin Filler: [id number] WILLIAM FLORIAN Procedures Date CPT Code Description Status 05/05/2018 48679 EKG Tracing & Interpretation Completed 02/21/2018 76420 Stress Test Completed 02/21/2018 86914 Myocardial Perfusion Imaging Tomographic (Spect) Completed Multiple Studies 02/09/2018 80111 EKG Tracing & Interpretation Completed 01/18/2018 65164 ECHO Transthoracic, Real-Time 2D With Doppler And Color Completed Flow 01/18/2018 30804 ECHO Transthoracic, Real-Time 2D With Doppler And Color Completed Flow 11/21/2017 93686 EKG Tracing & Interpretation Completed 11/15/2017 20914 EKG, Interpretation Only Completed 11/14/2017 23719 EKG, Interpretation Only Completed 11/13/2017 07842 ECHO Transthorasic Realtime 2D W Doppler & Color Flow Completed Hosp 11/13/2017 30112 EKG, Interpretation Only Completed 11/12/2017 72152 Left Heart Cath. Incl S/I Coronaries, Angio S/I V Gram Completed If Done 11/12/2017 06944 Revascularization Acute Total/Subtotal Occlusion Completed 06/03/2017 81271 Laparoscopy, Surgical, Appendectomy Completed 02/07/2015 29581 Trigger Finger Release Incision / Tendon Sheath Completed Incision Encounters Type Date Location Provider CPT E/M Dx Office Visit 05/08/2018 [facility] Bigg Cherry M.D. 04856 G60.3 1:30p [facility] [place] G25.81 Office Visit 02/09/2018 10:30a [facility] Of Tash Aj, 50854 I25.5 [place] N.PElena I25.10 R53.1 Z72.0 I10 E78.00 E11.8 Office Visit 01/10/2018 9:45a [facility] Of Vinita Lucero M.D. 04253 I25.10 [place] R53.1 Z72.0 I10 E78.00 E11.8 I25.5 Office Visit 01/02/2018 11:00a [facility] Bigg Cherry 67245 G60.3 [facility] [place] G57.11 G25.81 Office Visit 11/21/2017 1:20p [facility] Of Iliana Matson, 35748 I21.4 Prosthetics Technician AT [facility] [place], FSCAI Z72.0 Office Visit 11/16/2017 2:34p [facility] Iliana Matson, 73196 I21.4 Prosthetics Technician AT [facility] [place], FSCAI Office Visit 11/16/2017 3:02p [facility], Rizwana Beard, 62361 I21.4 Hospitalists Al[place] E78.00 G47.33 E11.9 Office Visit 11/15/2017 2:33p [facility] Of Iliana ParksElena Matson, 06610 I21.4 Prosthetics Technician AT [facility] [place], [facility] Office Visit 11/15/2017 2:57p [facility]pc Rizwana Beard, 25200 I21.4 Hospitalists [place] E78.00 G47.33 E11.9 Office Visit 11/14/2017 2:32p [facility] Of Iliana ParksElena Matson, 60890 I21.4 Prosthetics Technician AT [facility] [place], [facility] Office Visit 11/14/2017 2:56p [facility],tara Beard, 63426 I21.4 Hospitalists [place] E78.00 G47.33 E11.9 Office Visit 11/13/2017 2:40p [facility] Of Vinita Lucero M.D. 77230 I21.4 Prosthetics Technician I25.10 Z72.0 Office Visit 11/13/2017 2:55p [facility] Michaela Nguyen, 82131 I21.4 Hospitalists E78.00 G47.33 E11.9 Office Visit 11/13/2017 2:29p [facility] Of Iliana ParksElena Matson, 98284 I21.4 Prosthetics Technician AT [facility] [place], [facility] E11.9 I50.22 I95.1 Office Visit 11/12/2017 2:55p [place], [address] I21.4 Assoc, Hospitalists [place]va E78.00 G47.33 K21.9 Office Visit 11/12/2017 2:32p [facility] Vinita Lucero M.D. 06442 I20.9 [facility] R94.31 R79.89 E66.9 E78.5 Z82.49 Z72.0 Office Visit 10/31/2017 10:15a [facility] Bigg Cherry 53464 G60.3 [facility] [place] G57.11 G25.81 Office Visit 09/07/2017 4:00p [facility]Santos Cherry 22047 G60.3 Neurologic Serv Of [place] G57.10 Office Visit 07/20/2017 1:00p [facility] Bigg Cherry, 23589 G60.3 Neurologic Serv Of [place] G57.10 G25.81 Office Visit 06/03/2017 7:00a [facility] [place], 66923 K35.80 [place] Office Visit 11/12/2016 9:30a [facility] Kaylee Stevens PA-C 90383 M51.36 Of [facility] Office Visit 02/06/2015 8:30a [facility] Of Christy Rice, 69061 727.03 [place] Office Visit 12/02/2014 2:20p [facility] Chester Mcgarry, 00436 847.2 Of [place] 355.1 Office Visit 01/06/2010 9:00a [facility] Chester Mcgarry, 91135 721.1 Of [place] Office Visit 02/26/2008 10:30a [facility] Chester Mcgarry, 78782 721.1 Of [place] Plan of Care Future Appointment(s):07/31/2018 1:45 pm - Bigg Cherry M.D. at [facility]05/23/2018 2:00 pm - Caroline Galeano NP at [facility]05/08/2018 - Bigg Cherry M.D.G60.3 Idiopathic progressive neuropathyNew Medication:Ropinirole HCL 4 mgFollow up:Follow up in 12 qzamoE86.81 Restless legs syndrome
--- OUTSIDE RECORDS SUMMARY | 2018-05-25 14:00 | XMS REPORT ---
:1960 External Reference #:[id number] Author Organization [facility] Address [address] [facility] [place] [address] Phone [phone] Care Team Providers Name Role Phone Leobardo Bernardo MD Primary Care Physician Unavailable Payers Type Date Identification Numbers Payment Provider Subscriber Commercial Effective: Policy Number: Rafael Paulino 2017 [id number] Yolanda PayID: [id number] [address] [place] [address] [facility] Expires: 2017 Policy Number: Medicaid Jamaal Guerrero [id number] Group Name: 1 1 [address] PayID: [id number] [place] [address] Problems Date Description Provider Status Onset: 12/02/2014 [...] Acute subendocardial infarction Iliana Matson MD, Active [facility], [facility] Family History Date Family Member(s) Problem(s) [...] 10-15 minutes daily, stationary bike 10-15 minutes Allergies, Adverse Reactions, Alerts Date Description Reaction Status Severity Comments 12/02/2014 Codeine other active hallucinations and sweating 09/07/2017 Blueberries active hives and swelling 09/07/2017 Winter Pears active hives and swelling 10/30/2017 Vicodin active Medications Medication Date Status Form Strength Qnty SIG Indications Ordering Provider Amlodipine 05/05 Active Tablets 2.5mg 90tab 1 by I25.10 Vinita Besylate /2017 s mouth [place], every day M.D. Metoprolol 11/21 Active Tablets 25mg 90tab 1 by I21.4 Vinita Tartrate /2017 s mouth [place], daily M.D. Clopidogrel 11/21 Active Tablets 75mg 90tab 1 by I21.4 Iliana Gomez Bisulfate /2017 s carlos Matson MD, every day [facility] Aspirin 81 Low 11/16 Active Chewtabs 81mg 1 by Iliana Gomez Dose /2017 carlos Matson MD, every day [facility] Prinivil 11/16 Active Tablets 5mg 90tab take 1 Vinita s tablet by [place], mouth at M.D. bedtime Atorvastatin 11/16 Active Tablets 80mg 90tab 1 by Vinita Calcium s mouth [place], every day M.D. Gabapentin 09/07 Active Capsules 300mg 270ca 3 by G60.3 olimpia Cherry M.D. three times a day Ropinirole HCL Active Tablets 2mg 2-3 tabs Unknown /0000 daily at night Hydrocodone Active Tablets 5-300mg 1 tab by [...] Gomez anshul Matson MD, - twice a [facility], [facility] Toprol XL 11/16 Hx Tablets ER 50mg 90tab 1 by Iliana Gomez 24HR lamont Matson MD, - every day [facility], [facility] 01/01 Gabapentin 07/20 Hx Capsules 300mg [...] /0000 DR mouth - every day 01/01 Tramadol HCL Hx Tablets 50mg take 1-2 Unknown /0000 tablets - by mouth 02/05 hours if needed Furosemide / Hx 20mg Unknown /0000 - 02/28 Cephalexin Hx 500mg Unknown /0000 - 11/12 Meloxicam Hx Tablets 15mg take 1 Unknown /0000 tablet by - mouth 11/20 daily Tramadol HCL 00 Hx Tablets 50mg Take 1 To Unknown /0000 2 Tablets - By Mouth 07/15 Every Hours as Needed Oxycodone-Acetam 00 Hx Tablets 5-325mg Take 2 Unknown inophen [...] Ordering Provider Technetium TC Administered Injection José Miguel Bennett 99M 018 Veronica Kirkland M.D., FACC, Per Unit Dose FASNC Up To 40 Millicuries Vital Signs Date Vital Result Comment 05/05/2018 Height 63 inches 5'3" Weight 199.00 [...] Kinase(CK) 77 U/L 10-223 Lipid Panel - [facility] 01/10/2018 Creatine Kinase(CK) <pending> Laboratory test finding [...] Cadmium 3.6 ng/mL 0.0-4.[address] [place] [address] Guardian First Name JAMAAL Guardian Last Name [...] protein on serum electrophoresis. Test Performed by: [facility] [address] [place] [address] 9 REFERENCE VALUE <0.4 (Negative) 10 REFERENCE VALUE <0.4 (Negative) Test Performed by: [facility] [address] [place] [address] 11 ADDITIONAL INFORMATION This test was developed and its performance characteristics determined by [facility] in a manner consistent with CLIA requirements. This test has not been cleared or approved by the U.S. Food and Drug Administration. 12 ADDITIONAL INFORMATION Testing performed by Inductively Coupled Plasma-Mass Spectrometry (ICP-MS). This test was developed and its performance characteristics determined by [facility] in a manner consistent with CLIA requirements. This test has not been cleared or approved by the U.S. Food and Drug Administration. 13 ADDITIONAL INFORMATION This test was developed and its performance characteristics determined by [facility] in a manner consistent with CLIA requirements. This test has not been cleared or approved by the U.S. Food and Drug Administration. 14 ADDITIONAL INFORMATION This test was developed and its performance characteristics determined by [facility] in a manner consistent with CLIA requirements. This test has not been cleared or approved by the U.S. Food and Drug Administration. [address] [place] [address] 16 Test Performed by: [address] [address] 17 Staff Radiation Therapist: [id number] WILLIAM FLORIAN Procedures Date CPT Code Description Status 05/05/2018 58781 EKG Tracing & Interpretation Completed 02/21/2018 37363 Stress Test Completed 02/21/2018 61837 Myocardial Perfusion Imaging Tomographic (Spect) Completed Multiple Studies 02/09/2018 75406 EKG Tracing & Interpretation Completed 01/18/2018 38941 ECHO Transthoracic, Real-Time 2D With Doppler And Color Completed Flow 01/18/2018 32334 ECHO Transthoracic, Real-Time 2D With Doppler And Color Completed Flow 11/21/2017 78859 EKG Tracing & Interpretation Completed 11/15/2017 17722 EKG, Interpretation Only Completed 11/14/2017 71375 EKG, Interpretation Only Completed 11/13/2017 93731 ECHO Transthorasic Realtime 2D W Doppler & Color Flow Completed Hosp 11/13/2017 65930 EKG, Interpretation Only Completed 11/12/2017 48073 Left Heart Cath. Incl S/I Coronaries, Angio S/I V Gram Completed If Done 11/12/2017 88093 Revascularization Acute Total/Subtotal Occlusion Completed 06/03/2017 17084 Laparoscopy, Surgical, Appendectomy Completed 02/07/2015 88749 Trigger Finger Release Incision / Tendon Sheath Completed Incision Encounters Type Date Location Provider CPT E/M Dx Office Visit 05/05/2018 [facility] V[place] Lucero M.D. 47191 I25.10 9:00a [place] AT [facility] I25.2 G47.33 Z72.0 Office Visit 02/09/2018 10:30a [facility] Of Tash Aj, 05752 I25.5 [place] N.PElena I25.10 R53.1 Z72.0 I10 E78.00 E11.8 Office Visit 01/10/2018 9:45a [facility] Of Vinita Lucero M.D. 66527 I25.10 [place] R53.1 Z72.0 I10 E78.00 E11.8 I25.5 Office Visit 01/02/2018 11:00a [facility] Bigg Cherry, 20709 G60.3 Services [facility] [place] G57.11 G25.81 Office Visit 11/21/2017 1:20p [facility] Iliana Matson, 14827 I21.4 [facility] AT [facility] [place], [facility] Z72.0 Office Visit 11/16/2017 2:34p [facility] Of Iliana Matson, 18805 I21.4 Professor Of Legal Studies AT [facility] [place], [facility] Office Visit 11/16/2017 3:02p [facility], Rizwana Beard, 93739 I21.4 Hospitalists [place] E78.00 G47.33 E11.9 Office Visit 11/15/2017 2:33p [facility] Iliana Matson, 16030 I21.4 Professor Of Legal Studies AT [facility] [place], [facility] Office Visit 11/15/2017 2:57p [facility],tara Beard, 60184 I21.4 Hospitalists [place] E78.00 G47.33 E11.9 Office Visit 11/14/2017 2:32p [facility] Of Iliana Jettindira, 06383 I21.4 Professor Of Legal Studies AT [facility] , NBA, FSCAI Office Visit 11/14/2017 2:56p [facility]pc Rizwana Beard, 89286 I21.4 Hospitalists [place] E78.00 G47.33 E11.9 Office Visit 11/13/2017 2:40p [facility] Vinita Lucero M.D. 86818 I21.4 Professor Of Legal Studies I25.10 Z72.0 Office Visit 11/13/2017 2:55p [facility] Michaela Nguyen, 55614 I21.4 Hospitalists E78.00 G47.33 E11.9 Office Visit 11/13/2017 2:29p [facility] Of Iliana ParksElena Johnieindira, 51419 I21.4 Professor Of Legal Studies AT [facility] , NBA, FSCAI E11.9 I50.22 I95.1 Office Visit 11/12/2017 2:55p [facility] [place], [address] I21.4 Assoc,pc Hospitalists [place] E78.00 G47.33 K21.9 Office Visit 11/12/2017 2:32p [facility] Vinita Lucero M.D. 30005 I20.9 [facility] R94.31 R79.89 E66.9 E78.5 Z82.49 Z72.0 Office Visit 10/31/2017 10:15a [facility] Bigg Cherry, 83861 G60.3 Services [facility] [place] G57.11 G25.81 Office Visit 09/07/2017 4:00p [facility]/Santos Cherry, 93840 G60.3 Neurologic Serv Of [place] G57.10 Office Visit 07/20/2017 1:00p Santiago/Santos Cherry, 48941 G60.3 Neurolog[facility] Serv Of [place] G57.10 G25.81 Office Visit 06/03/2017 7:00a [facility] [place] [facility] [place], 57824 K35.80 [place] Office Visit 11/12/2016 9:30a [facility] Services Kaylee Stevens PA-C 35288 M51.36 Of [facility] Office Visit 02/06/2015 8:30a [facility] Of Christy Montemayorach, 56492 727.03 [place] Office Visit 12/02/2014 2:20p [facility] Chester Mcgarry, 52259 847.2 Of [facility] Alva 355.1 Office Visit 01/06/2010 9:00a [facility] Chester Mcgarry, 93666 721.1 Of [facility] Alva Office Visit 02/26/2008 10:30a [facility] Services Chester Mcgarry, 52269 721.1 Of [facility] [place] Plan of Care Future Appointment(s):05/23/2018 2:00 pm - Caroline Galeano NP at [facility]05/05/2018 - [place] Lucero M.D.I25.10 [facility] [place] coronary artery w/o ang pctrsNew Medication:Amlodipine Besylate 2.5 mgComments:Your stress test showed an old area of permanent damage and around that an area that could give you symptoms of angina.Follow up:Keep current May visit with [facility]. OV with October or November 2018Recommendations:Option of adding amlodipine in the morning for the surrounding area to get more blood flow and it will improve your blood pressure.I25.2 Old myocardial qnrlaavpguW50.33 Obstructive sleep apnea (adult) (pediatric)Comments:I would talk to your sleep team about sleep problems and/or Dr Bernardo's office.Z72.0 Tobacco useComments:I again strongly recommend completely stopping cigarettes.
[2018-05-25 15:18] VITALS: BP 117/68
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
== END 2018-05-25 15:45 | disposition home health service (06) ==
LOC: UCEAST 13:53
DX: R42 Dizziness and giddiness (principal); I25.2 Old myocardial infarction; Z95.5 Presence of coronary angioplasty implant and graft; Z88.5 Allergy status to narcotic agent; Z91.018 Allergy to other foods; F17.210 Nicotine dependence, cigarettes, uncomplicated
CPT/HCPCS: 93005; 99212; G0463

== ENCOUNTER 2018-08-04 14:31 | Emergency (ER) | payer OTHER ==
[2018-08-04 15:12] VITALS: BP 110/63
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
== END 2018-08-04 17:18 | disposition home or self-care (01) ==
LOC: UCEAST 14:31
DX: M53.3 Sacrococcygeal disorders, not elsewhere classified (principal); I10 Essential (primary) hypertension; K21.9 Gastro-esophageal reflux disease without esophagitis; F17.210 Nicotine dependence, cigarettes, uncomplicated; Z79.899 Other long term (current) drug therapy; Z88.5 Allergy status to narcotic agent; Z91.018 Allergy to other foods; W01.198A Fall on same level from slipping, tripping and stumbling with subsequent striking against other object, initial encounter; Y92.9 Unspecified place or not applicable
CPT/HCPCS: 72100; 72220; 99212; G0463

== ENCOUNTER 2019-03-18 11:12 | Emergency (ER) | payer SELFPAY ==
[2019-03-18 11:21] VITALS: BP 136/74
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
== END 2019-03-18 11:55 | disposition home or self-care (01) ==
LOC: UCEAST 11:12
DX: S00.262A Insect bite (nonvenomous) of left eyelid and periocular area, initial encounter (principal); S20.96XA Insect bite (nonvenomous) of unspecified parts of thorax, initial encounter; S40.862A Insect bite (nonvenomous) of left upper arm, initial encounter; W57.XXXA Bitten or stung by nonvenomous insect and other nonvenomous arthropods, initial encounter; Y92.9 Unspecified place or not applicable; I10 Essential (primary) hypertension; F17.210 Nicotine dependence, cigarettes, uncomplicated; Z88.5 Allergy status to narcotic agent
CPT/HCPCS: 99212; G0463

== ENCOUNTER 2019-03-23 13:50 | Emergency (ER) | payer SELFPAY ==
[2019-03-23 14:06] VITALS: BP 155/77
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
== END 2019-03-23 14:34 | disposition home or self-care (01) ==
LOC: UCEAST 13:50
DX: L03.213 Periorbital cellulitis (principal); E11.9 Type 2 diabetes mellitus without complications; I10 Essential (primary) hypertension; I25.2 Old myocardial infarction; F17.210 Nicotine dependence, cigarettes, uncomplicated; Z88.5 Allergy status to narcotic agent
CPT/HCPCS: 99212; G0463

== ENCOUNTER 2019-10-30 11:16 | Emergency (ER) | payer SELFPAY ==
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
[2019-10-30 13:40] VITALS: BP 125/69
[2019-10-30 14:27] LABS: Influenza A Molecular Negative (Negative); Influenza B Molecular Negative (Negative)
== END 2019-10-30 14:55 | disposition home or self-care (01) ==
LOC: UCEAST 11:16
DX: J40 Bronchitis, not specified as acute or chronic (principal); J32.9 Chronic sinusitis, unspecified; E11.9 Type 2 diabetes mellitus without complications; E78.5 Hyperlipidemia, unspecified; F17.210 Nicotine dependence, cigarettes, uncomplicated; I10 Essential (primary) hypertension; Z91.030 Bee allergy status; Z88.5 Allergy status to narcotic agent; Z91.018 Allergy to other foods; Z79.82 Long term (current) use of aspirin; Z79.01 Long term (current) use of anticoagulants; Z79.899 Other long term (current) drug therapy
CPT/HCPCS: 99212; G0463

== ENCOUNTER 2023-01-09 19:34 | Inpatient (IN) ==
[2023-01-09 20:10] LABS: ABS Basophils 0.1 10^3/uL (0.0-0.1); ABS Eosinophils 0.1 10^3/uL (0.0-0.5); ABS Lymphocytes 1.7 10^3/uL (1.0-4.8); ABS Monocytes 0.4 10^3/uL (0.0-0.9); ABS Neutrophils 3.9 10^3/uL (1.5-7.6); ABS Nucleated RBC 0.01 10^3/ul; Eosinophil % 1.9 %; Hematocrit 44.7 % (35-45); Lymphocyte % 27.7 %; Mean Corpuscular Hemoglobin 32.9 pg (27-33); Mean Corpuscular Hgb Conc 35.9 g/dL (31-36); Mean Corpuscular Volume 91.7 fL (80-97); Mean Platelet Volume 7.9 fL (7.5-11.2); Nucleated Red Blood Cells % 0.2 /100 WBC (0.0-0.4); Platelet Count 196 10^3/uL (150-450); Red Blood Count 4.87 10^6/uL (3.63-4.92); White Blood Count 6.1 10^3/uL (3.8-11.8)
[2023-01-09] MEDS ORDERED: nitroGLYCERIN DRIP 25,000 MCG/250 ML BTL IV SCH (20:15)
[2023-01-09 20:18] LABS: INR 0.97 (0.88-1.18)
[2023-01-09] MEDS: Heparin DRIP 25,000 UNITS BAG 25,000 UNITS/500 ML BAG IV SCH (20:26)
[2023-01-09] MEDS: Heparin 5000 UNITS/ML 1 mL VIAL IV SCH (20:27)
[2023-01-09 20:37] LABS: Albumin 4.1 g/dL (3.2-5.2); Albumin/Globulin Ratio 1.9 (1-3); Calcium 9.4 mg/dL (8.6-10.3); Creatinine, Serum 0.61 mg/dL (0.51-0.95); Globulin 2.2 g/dL (2-4); Total Bilirubin 0.5 mg/dL (0.2-1.0); Total Protein 6.3 g/dL (6.4-8.9)
[2023-01-09 20:39] LABS: Potassium 4.1 mmol/L (3.5-5.0)
[2023-01-09 21:07] LABS: High Sensitivity Troponin 1 Hr 228 pg/mL (<15)
[2023-01-09] MEDS ORDERED: Dextrose 50% Syringe 50 ml 25 GM/50 ML SYRINGE IV PUSH PRN ×2 (21:34→21:36)
[2023-01-09] MEDS ORDERED: Albuterol HFA INHALER 8 gm MDI INH PRN (21:38)
[2023-01-09 23:22] LABS: HDL Cholesterol 21.6 mg/dL
[2023-01-09 23:23] LABS: High Sensitivity Troponin 3 Hr 598 pg/mL (<15)
[2023-01-10] MEDS ORDERED: Dextrose 50% Syringe 50 ml 25 GM/50 ML SYRINGE IV PUSH PRN (01:40)
[2023-01-10] MEDS: Heparin 5000 UNITS/ML 1 mL VIAL IV SCH (02:35)
[2023-01-10 04:57] LABS: ABS Eosinophils 0.1 10^3/uL (0.0-0.5); ABS Lymphocytes 2.7 10^3/uL (1.0-4.8); ABS Monocytes 0.5 10^3/uL (0.0-0.9); ABS Neutrophils 4.9 10^3/uL (1.5-7.6); ABS Nucleated RBC 0.01 10^3/ul; Eosinophil % 1.8 %; Hematocrit 43.2 % (35-45); Hemoglobin 15.2 g/dL (11.5-14.3); Lymphocyte % 32.6 %; Mean Corpuscular Hemoglobin 32.6 pg (27-33); Mean Corpuscular Hgb Conc 35.2 g/dL (31-36); Mean Corpuscular Volume 92.7 fL (80-97); Mean Platelet Volume 8.5 fL (7.5-11.2); Nucleated Red Blood Cells % 0.1 /100 WBC (0.0-0.4); Platelet Count 186 10^3/uL (150-450); Red Blood Count 4.66 10^6/uL (3.63-4.92); Red Cell Distribution Width 12.9 % (12-17); White Blood Count 8.3 10^3/uL (3.8-11.8)
[2023-01-10 05:56] LABS: Creatinine, Serum 0.52 mg/dL (0.51-0.95); Phosphorus 4.6 mg/dL (2.5-5.0)
[2023-01-10 05:57] LABS: Magnesium 1.7 mg/dL (1.9-2.7)
[2023-01-10] MEDS ORDERED: Magnesium Sulfate IV 1GM/100ML 1 GM/100 ML BAG IV ONE (06:36)
[2023-01-10] MEDS ORDERED: Pantoprazole VIAL 40 MG VIAL IV SCH (09:00)
[2023-01-10] MEDS: Heparin DRIP 25,000 UNITS BAG 25,000 UNITS/500 ML BAG IV SCH (20:48)
[2023-01-10] MEDS ORDERED: Insulin GLARGINE 100 un/ml 10 ml VIAL SUBCUT SCH (21:00)
[2023-01-11 00:30] LABS: Glucose Confirmatory 418 mg/dL (70-100)
[2023-01-11 04:57] LABS: ABS Basophils 0.1 10^3/uL (0.0-0.1); ABS Eosinophils 0.1 10^3/uL (0.0-0.5); ABS Lymphocytes 2.6 10^3/uL (1.0-4.8); ABS Monocytes 0.5 10^3/uL (0.0-0.9); ABS Neutrophils 3.8 10^3/uL (1.5-7.6); Eosinophil % 1.9 %; Hematocrit 41.2 % (35-45); Hemoglobin 14.4 g/dL (11.5-14.3); Lymphocyte % 36.9 %; Mean Corpuscular Hemoglobin 32.3 pg (27-33); Mean Corpuscular Volume 92.2 fL (80-97); Nucleated Red Blood Cells % 0.1 /100 WBC (0.0-0.4); Platelet Count 158 10^3/uL (150-450); Red Blood Count 4.47 10^6/uL (3.63-4.92); Red Cell Distribution Width 13.1 % (12-17); White Blood Count 7.1 10^3/uL (3.8-11.8)
[2023-01-11 05:35] LABS: Calcium 8.8 mg/dL (8.6-10.3); Creatinine, Serum 0.48 mg/dL (0.51-0.95); Magnesium 1.8 mg/dL (1.9-2.7); Phosphorus 3.7 mg/dL (2.5-5.0); Potassium 3.9 mmol/L (3.5-5.0)
[2023-01-11] MEDS ORDERED: Magnesium Sulfate IV 1GM/100ML 1 GM/100 ML BAG IV ONE (05:49)
[2023-01-11] MEDS ORDERED: Magnesium Sulfate 2 gm BAG 2 GM/50 ML BAG IVPB ONE (06:55)
[2023-01-11] MEDS ORDERED: NS 0.9% 1000 ml BAG 1,000 ML IV SCH (07:45)
[2023-01-11] MEDS ORDERED: Heparin 2 UNITS/ML 1000 mls 2,000 ML IV ONE (12:12)
[2023-01-11] MEDS ORDERED: Lidocaine 1% MPF 5 ML VIAL ONE (12:12)
[2023-01-11] MEDS ORDERED: Iohexol 350 (CONTRAST) 200 ML MDV IV ONE ×2 (12:12→12:21)
[2023-01-11] MEDS ORDERED: Iohexol 350 (CONTRAST) 100 ML PAK IV ONE (12:13)
[2023-01-11] MEDS ORDERED: Midazolam 5 mg/5 ml VIAL 1 mg/ml 5 ml VIAL (5 mg) ONE (12:23)
[2023-01-11] MEDS ORDERED: Heparin 1,000 UNIT/ML 10 ml (10,000 UNITS) CATHLAB/DIALYSIS ONE (12:23)
[2023-01-11] MEDS ORDERED: fentaNYL 100 mcg/2 ml 50 MCG/ML VIAL ONE (12:23)
[2023-01-11] MEDS ORDERED: nitroGLYCERIN DRIP 25,000 MCG/250 ML BTL ONE (12:23)
[2023-01-11] MEDS ORDERED: VERAPAMIL 2.5 MG/ML 2 ML VIAL ** 5 mg/2 ml ONE (12:23)
[2023-01-11] MEDS ORDERED: Bivalirudin 250 MG VIAL ONE (12:33)
[2023-01-11 16:11] VITALS: BP 114/69
== END 2023-01-11 18:35 | disposition short-term general hospital (02) | DRG 282 ==
LOC: ED 19:34 → ICU 20:23 → EDHOLD 21:21 → SUATTDRO 21:21 → ICU 01-10 00:30
PROVIDERS: ADMIT Hospitalist; ATTEND Internal Medicine